=== PATIENT | female | born 1935 | race Caucasian/White ===

== ENCOUNTER → 2016-08-23 | Outpatient (CLI) | payer MEDICARE, BC ==
[~2016-08-23] MED LIST: ACIDOPHILUS PRO1 CAP PO; APRESOLINE 25MG25 MG PO; ASPIRIN E.C. 8181 MG PO; BENICAR HCT 251 TAB PO; BENICAR40 MG PO; BONIVA1 MG/ML MR; BYSTOLIC5 MG PO; CALCIUM 600600 M2 PO; CALCIUM CARBON650 M2; CALTRATE-600 W600 MG PO; CARDI-OMEGA1000 MG PO; CARDIZEM120 MG PO; CHLORTHALIDONE25 MG PO; CLEOCIN HCL300 MG PO; COD LIVER OIL1 CAP PO; COUMADIN 5MG5 MG/TAB PO; COUMADIN 6MG6 MG/TAB PO; COUMADIN 77.5 MG/TAB PO; COZAAR 25MG25 MG/TAB PO; COZAAR 50MG50 MG/TAB PO; DICYCLOMINE10 MG PO; DOXYCYCLINE 10100 MG PO; ENBREL25 MG PO; ENBREL25 MG SC; FOLIC ACID 11 MG/TA1 PO; FOLIC ACID1 MG PO; FORTEO250 MCG/ML SC; FOSAMAX 70MG TA70 MG PO; HCTZ 25MG25 MG PO; HCTZ12.5TAB PO; HYGROTON25 MG PO; LEVOXYL0.1 MG PO; LOPRESSOR 225 MG/TAB PO; LOTRISONE CREAM15 GM TP; LUTEIN; LUTEIN PO; LUTEIN6 MG; METHOTREXA2.5 MG/TAB PO; MULTAQ400 MG PO; MULTI VITAMINS1 TAB PO; MULTIPLE VITAMI1 TA3 PO; MVI; NASONEX SPRAY17 GM NS; NEURONTIN300 MG/CAP PO; NEXIUM 40MG40 MG PO; NEXIUM40 MG PO; NORCO 325 MG-51 TAB PO; NORVASC 5MG5 MG/TAB PO; ORENCIA CL125 MG/1 M SQ; ORENCIA125 MG/ML SC; PEPCID AC 10MG10 MG; PREMARIN VAG42.5 GM VG; PROLIA60 MG/ML SQ; RHINOCORT0.032 MG/2 NS; SALSALATE; SYMBICORT1 AE2 IH; SYNTHROID0.112 MG/T PO; SYNTHROID0.125 MG/T PO; TAMBOCOR50 MG PO; TIROSINT100 MCG PO; TREXALL5 MG PO; TYLENOL 325MG325 MG PO; TYLENOL 500MG500 MG PO; TYLENOL PM EXTR1 TA1 PO; ULTRAM 50MG TAB50 MG PO; VITAMIN D; VITAMIN D 400400 IU PO; VITAMIN D1000 IU PO; VIVELLE-DO0.025 MG/2 TD; ZANTAC 7575 MG PO; ZYRTEC 10MG10 MG PO; [UNRECOGNIZED DRUG - OTHER] TP; cod liver oil; estrogen; l-lysine; levoxyl PO; vit e
== END ==
LOC: MC.RAD 09:40
DX: Z12.31 Encounter for screening mammogram for malignant neoplasm of breast (principal)

== ENCOUNTER 2017-01-23 09:24 | Emergency (ER) | payer MEDICARE, BC ==
[~2017-01-23] VITALS: Ht 165.1 cm; Wt 74.1 kg
[~2017-01-23 09:24] MED LIST changes: -CALCIUM CARBON650 M2; -CARDIZEM120 MG PO; -COZAAR 25MG25 MG/TAB PO; -HCTZ12.5TAB PO; -LUTEIN6 MG; -ORENCIA CL125 MG/1 M SQ; -PROLIA60 MG/ML SQ; -SYNTHROID0.125 MG/T PO; -ZANTAC 7575 MG PO
[2017-01-23 09:27] VITALS: BP 142/71; PULSE 64; TEMP 97.8
[2017-01-23] MEDS ORDERED: VITAMIN D1000 IU PO (09:57)
[2017-01-23] MEDS ORDERED: FOLIC ACID 11 MG/TA1 PO (09:58)
[2017-01-23] MEDS ORDERED: LUTEIN6 MG (09:58)
[2017-01-23] MEDS ORDERED: ORENCIA CL125 MG/1 M SQ (09:58)
[2017-01-23] MEDS ORDERED: SYNTHROID0.125 MG/T PO (09:58)
[2017-01-23] MEDS ORDERED: TYLENOL 500MG500 MG PO (09:59)
[2017-01-23] MEDS ORDERED: HCTZ12.5TAB PO (09:59)
[2017-01-23] MEDS ORDERED: COD LIVER OIL1 CAP PO (09:59)
[2017-01-23] MEDS ORDERED: CARDIZEM120 MG PO (09:59)
[2017-01-23] MEDS ORDERED: COZAAR 25MG25 MG/TAB PO (10:00)
[2017-01-23] MEDS ORDERED: PROLIA60 MG/ML SQ (10:00)
[2017-01-23] MEDS ORDERED: COUMADIN 5MG5 MG/TAB PO (10:01)
[2017-01-23] MEDS ORDERED: CALCIUM CARBON650 M2 (10:02)
[2017-01-23] MEDS ORDERED: ZANTAC 7575 MG PO (10:02)
[2017-01-23] MEDS ORDERED: NEURONTIN300 MG/CAP PO (10:02)
== END 2017-01-23 10:38 | disposition home or self-care (01) ==
LOC: COL.ER 09:24
DX: M79.672 Pain in left foot (principal); I10 Essential (primary) hypertension; Z86.718 Personal history of other venous thrombosis and embolism; Z86.711 Personal history of pulmonary embolism; Z79.01 Long term (current) use of anticoagulants; M06.9 Rheumatoid arthritis, unspecified

== ENCOUNTER → 2017-06-20 | Outpatient (CLI) | payer MEDICARE, BC ==
[~2017-06-20] MED LIST changes: +CALCIUM CARBON650 M2; +CARDIZEM120 MG PO; +COZAAR 25MG25 MG/TAB PO; +HCTZ12.5TAB PO; +LUTEIN6 MG; +ORENCIA CL125 MG/1 M SQ; +PROLIA60 MG/ML SQ; +SYNTHROID0.125 MG/T PO; +ZANTAC 7575 MG PO
== END ==
LOC: COL.PUL 09:56
DX: J84.9 Interstitial pulmonary disease, unspecified (principal)

== ENCOUNTER → 2017-08-26 | Outpatient (CLI) | payer MEDICARE, BC | LOC: MC.RAD 10:43 | DX: Z12.31 Encounter for screening mammogram for malignant neoplasm of breast (principal) ==

== ENCOUNTER → 2018-03-22 | Outpatient (CLI) | payer MEDICARE, BC | LOC: COL.RAD 11:11 | DX: M51.16 Intervertebral disc disorders with radiculopathy, lumbar region (principal); M48.061 Spinal stenosis, lumbar region without neurogenic claudication; M99.73 Connective tissue and disc stenosis of intervertebral foramina of lumbar region ==

== ENCOUNTER → 2018-03-29 | Outpatient (CLI) | payer MEDICARE, BC ==
[~2018-03-29] VITALS: Ht 162.6 cm; Wt 68.8 kg
[~2018-03-29] MED LIST changes: +B-12 100 MCG PO; -CALCIUM CARBON650 M2; +CALCIUM CARBON650 M2 PO; +COLACE 100100 MG/CAP PO; -LUTEIN6 MG; +LUTEIN6 MG PO; +MASON NATURAL2000 IU PO; +NEXIUM 20MG20 MG PO; +NEXIUM 24HR20 M1 PO; +SYNTHROID0.137 MG PO
[2018-03-29 13:43] VITALS: BP 168/79; PULSE 67
[2018-03-29 14:07] LABS: INR 1.1 (0.8-3.0)
[2018-03-29 15:15] VITALS: BP 169/82; PULSE 62
== END ==
LOC: COL.RAD 13:00
PROVIDERS: Radiology Diagnostic Radiology
DX: M54.16 Radiculopathy, lumbar region (principal)
CPT/HCPCS: J3301

== ENCOUNTER → 2018-04-20 | Outpatient (CLI) | payer MEDICARE, BC ==
[~2018-04-20] VITALS: Ht 162.6 cm; Wt 68.0 kg
[~2018-04-20] MED LIST changes: +COUMADIN4 MG PO; +HAIRSKINNAILS PO
[2018-04-20 09:54] VITALS: BP 161/84; PULSE 62
[2018-04-20 09:58] LABS: INR 1.1 (0.8-3.0); PROTHROMBIN TIME 12.6 SECONDS (9.7-12.8)
[2018-04-20 11:10] VITALS: BP 159/84; PULSE 65
== END ==
LOC: COL.RAD 09:30
PROVIDERS: Family Medicine
DX: M54.16 Radiculopathy, lumbar region (principal)
CPT/HCPCS: J3301

== ENCOUNTER → 2018-09-01 | Outpatient (CLI) | payer MEDICARE, BC | LOC: MC.RAD 13:02 | DX: Z12.31 Encounter for screening mammogram for malignant neoplasm of breast (principal); N63.24 Unspecified lump in the left breast, lower inner quadrant ==

== ENCOUNTER → 2018-10-09 | Outpatient (CLI) | payer MEDICARE, BC ==
[~2018-10-09] VITALS: Ht 162.6 cm; Wt 67.4 kg
[~2018-10-09] MED LIST changes: +APRESOLINE 10MG10 MG PO; +B-121000 MCG PO; +FERROUS GL325 MG/TAB PO; +PREDNISONE 2.52.5 MG PO; +SYNTHROID 0.10.15 MG PO; +VITAMIN C500 MG PO
[2018-10-09 12:10] VITALS: BP 169/88; PULSE 86
[2018-10-09 12:34] LABS: PROTHROMBIN TIME 11.9 SECONDS (9.7-12.8)
[2018-10-09 13:45] VITALS: BP 170/77; PULSE 66
--- NOTE | 2018-10-09 14:15 | NUR ---
PT TAKEN DOWNSTAIRS TO POV IN WHEELCHAIR. PT ABLE TO STAAND UP AND AMBULATE TO POV USING CANE
== END ==
LOC: COL.RAD 10-04 11:45
PROVIDERS: Family Medicine
DX: M48.062 Spinal stenosis, lumbar region with neurogenic claudication (principal); M54.16 Radiculopathy, lumbar region
CPT/HCPCS: J3301

== ENCOUNTER → 2018-10-23 | Outpatient (CLI) | payer MEDICARE, BC ==
[~2018-10-23] VITALS: Ht 162.6 cm; Wt 68.5 kg
[2018-10-23 09:59] VITALS: BP 158/77; PULSE 66
[2018-10-23 11:35] VITALS: BP 162/76; PULSE 74
--- NOTE | 2018-10-23 12:15 | NUR ---
Pt able to stand on legs. Unable to walk at this time. Pt leans into daughter and nurse and daughter assist her back to chair. Pt states right leg numb. She is able to move them but cant walk on them.
[2018-10-23 12:30] VITALS: BP 155/78; PULSE 69
--- NOTE | 2018-10-23 13:03 | NUR ---
Pt able to ambulate across floor with assistance. States legs feel better but still not quite right. Pt to be monitored for an additional 15 minutes.
--- NOTE | 2018-10-23 13:18 | NUR ---
Pt up to ambulate without assistance. Pt reports right leg and foot feels better. Pt out to car per wheelchair. Denies pain at this time. Daughter at bedside. Copy of discharge instructions gone over with pt and verbalized understanding of instructions. Instructions gone over prior to procedure.
== END ==
LOC: COL.RAD 09:27
PROVIDERS: Family Medicine
DX: M48.062 Spinal stenosis, lumbar region with neurogenic claudication (principal)
CPT/HCPCS: J3301

== ENCOUNTER 2019-03-02 10:45 | Outpatient (RCR) | payer MEDICARE, BC | END 2019-03-02 13:12 | disposition home or self-care (01) | LOC: WSC 10:45 | DX: M70.72 Other bursitis of hip, left hip (principal) ==

== ENCOUNTER → 2019-09-07 | Outpatient (CLI) | payer MEDICARE, BC | LOC: MC.RAD 10:14 | DX: Z12.31 Encounter for screening mammogram for malignant neoplasm of breast (principal) ==

== ENCOUNTER → 2020-09-29 | Outpatient (CLI) | payer MEDICARE, BC ==
[~2020-09-29] MED LIST changes: +CALCITRIOL PO; +CARDIZEM CD 12120 MG PO; +COUMADIN 1MG1 MG/TAB PO; +CYMBALTA 20MG20 MG PO; +HUMIRA(CF)40 MG/0.4 SQ; +HYGROTON 2525 MG/TAB PO; +MAG-OX 400400 MG/TAB PO; +MIRALAX PA17 GM/Dose PO; +PERCOCET 325 MG1 TA2 PO; +PREDNISONE 5MG5 MG PO; +PRILOSEC 20MG20 MG PO; +ROCALTROL0.5 MCG PO; +VOLTAREN GEL 1%1 TU TP
== END ==
LOC: MC.RAD 09-08 10:00
DX: Z12.31 Encounter for screening mammogram for malignant neoplasm of breast (principal)

== ENCOUNTER 2020-11-21 11:39 | Emergency (ER) | payer MEDICARE, BC ==
[~2020-11-21] VITALS: Ht 162.6 cm; Wt 63.6 kg
[~2020-11-21 11:39] MED LIST changes: -CALCITRIOL PO; -CARDIZEM CD 12120 MG PO; -COUMADIN 1MG1 MG/TAB PO; -CYMBALTA 20MG20 MG PO; -HUMIRA(CF)40 MG/0.4 SQ; -HYGROTON 2525 MG/TAB PO; -MAG-OX 400400 MG/TAB PO; -MIRALAX PA17 GM/Dose PO; -PERCOCET 325 MG1 TA2 PO; -PREDNISONE 5MG5 MG PO; -PRILOSEC 20MG20 MG PO; -ROCALTROL0.5 MCG PO; -VOLTAREN GEL 1%1 TU TP
[2020-11-21] MEDS ORDERED: PERCOCET 325 MG1 TA2 PO (14:15)
[2020-11-21 17:32] VITALS: BP 172/97; PULSE 93; TEMP 98.1
--- NOTE | 2020-11-22 16:42 | NUR ---
Straightener Hand received consult for patient who discharged from the ED yesterday. Per ED consult, patient has a pelvis fracture. SW contacted patient's daughter, Silvana (ph#[phone]) who advised she will be staying with patient and patient's , Capo (ph#[phone]) through the weekend to provide support as she does not feel she can leave patient alone at this time. SW reviewed resources and facilities including home health, private duty services, SNF, and IPR. RAFAL advised Silvana that SNF would be private pay as Silvana confirmed patient has not been hospitalized in the last 30 days. Silvana does not believe they can afford this. Silvana advised that she may be interested in IPR. Silvana would like to take patient to her appointment with Ortho on Tuesday @ 0900 then follow up with RAFAL. SW provided her contact information and will follow up Tuesday.
== END 2020-11-21 16:40 | disposition home or self-care (01) ==
LOC: COL.ER 11:39
DX: S32.89XA Fracture of other parts of pelvis, initial encounter for closed fracture (principal); G89.29 Other chronic pain; M54.9 Dorsalgia, unspecified; Z90.710 Acquired absence of both cervix and uterus; Z88.0 Allergy status to penicillin; Z88.2 Allergy status to sulfonamides; Z88.8 Allergy status to other drugs, medicaments and biological substances; Z79.01 Long term (current) use of anticoagulants; Z88.1 Allergy status to other antibiotic agents; W19.XXXA Unspecified fall, initial encounter; Y92.838 Other recreation area as the place of occurrence of the external cause

== ENCOUNTER 2020-11-24 10:10 | Observation (INO) | payer MEDICARE, BC ==
[~2020-11-24] VITALS: Ht 162.6 cm; Wt 63.7 kg
[~2020-11-24 10:10] MED LIST changes: +PERCOCET 325 MG1 TA2 PO
[2020-11-24] MEDS ORDERED: PRILOSEC 20MG20 MG PO (10:50)
[2020-11-24] MEDS ORDERED: ROCALTROL0.5 MCG PO (10:55)
[2020-11-24] MEDS ORDERED: HYGROTON 2525 MG/TAB PO (10:56)
--- NOTE | 2020-11-24 10:56 | NUR ---
Pt admitted to surgical unit rm 326, direct from doctor's office, accompanied by spouse and daughter. Pt awake and alert, oriented x 4, denies pain to pelvis while lying still, reports pain greatly increases with movement "in and out of bed." Physical assessment unremarkable. POC and room orientation reviewed with pt and pt's family. Call light in reach. Bed alarm on.
[2020-11-24] MEDS ORDERED: APRESOLINE 25MG25 MG PO (10:58)
[2020-11-24] MEDS ORDERED: HUMIRA(CF)40 MG/0.4 SQ (11:00)
[2020-11-24] MEDS ORDERED: PREDNISONE 5MG5 MG PO (11:05)
[2020-11-24 11:10] VITALS: BP 136/53; PULSE 63; TEMP 98.3
--- NOTE | 2020-11-24 11:17 | NUR ---
Brim And Crown Presser had consult for this patient from the ED over the weekend. See note for further detail. Hospitalist notified SW that patient to be direct admitted. SW notified SIDDHARTH Mcguire Director that patient to be admitted.
[2020-11-24 11:24] VITALS: BP 146/52; PULSE 60; TEMP 99.2
--- NOTE | 2020-11-24 12:18 | NUR ---
First visit from the ventilating expert. No needs right now.
[2020-11-24 13:00] LABS: HEMOGLOBIN 10.8 g/dl (12.5-16.0); MEAN CELL VOLUME 95 fl (80.0-100.0); MEAN CORPUSCULAR HEMOGLOBIN 32 pg (27.0-31.0); MEAN CORPUSCULAR HGB CONC 34 g/dl (33.0-37.0); MEAN PLATELET VOLUME 8.4 fl (7.4-10.4); PLATELET COUNT 238 K/mm3 (130-400); RED BLOOD COUNT 3.37 M/mm3 (4.10-5.30); REDCELL DISTRIBUTION WIDTH-CV 12.4 % (11.5-14.5)
[2020-11-24 13:05] LABS: HEMATOCRIT 31.9 % (37.0-47.0)
[2020-11-24 13:06] LABS: INR 4.9 (0.8-3.0)
[2020-11-24 13:10] LABS: PROTHROMBIN TIME 54.9 SECONDS (9.7-12.8)
[2020-11-24 13:15] LABS: BILIRUBIN,TOTAL 0.5 mg/dL (0.0-1.0); CREATININE, serum 1.3 (0.52-1.25); MAGNESIUM 1.5 mg/dL (1.6-2.3); POTASSIUM 4.4 mmol/L (3.4-5.0)
[2020-11-24 13:44] LABS: BAND 17 % (0-10); LYMPHOCYTE 4 % (20.0-51.0); NEUTROPHILS 75 % (42.0-75.2); PLATELET ESTIMATE NORMAL (NORMAL)
[2020-11-24 15:38] VITALS: BP 158/62; PULSE 60; TEMP 98.2
--- NOTE | 2020-11-24 18:23 | NUR ---
Pt assisted up to BSC by OSMANI, reports pain to left hip and right knee increases with movement but decreases quickly when at rest. Pt requests to wait to take pain medication at bedtime. Pt's family at bedside. Call light in reach.
[2020-11-24 18:33] LABS: COLLECTION METHOD CLEAN CATCH
[2020-11-24 18:41] LABS: PH 7 (5-8); SQUAMOUS EPITHELIAL 0-2 /hpf; URINE APPEARANCE Clear; URINE BACTERIA Rare /hpf; URINE BILIRUBIN Negative (NEGATIVE); URINE BLOOD Negative (NEGATIVE); URINE COLOR Yellow; URINE GLUCOSE Negative (NEGATIVE); URINE KETONE Negative (NEGATIVE); URINE LEUKOCYTE ESTERASE Negative (NEGATIVE); URINE NITRATE Negative (NEGATIVE); URINE PROTEIN(semi-quant) Negative (NEGATIVE); URINE UROBILINOGEN Negative (NEGATIVE)
--- NOTE | 2020-11-24 19:17 | NUR ---
Report with ANDREI Segovia. Pt sitting up in bed, denies needs at this time. Call light in reach. Bed alarm on.
[2020-11-24 19:59] VITALS: BP 121/58; PULSE 71; TEMP 98.3
--- NOTE | 2020-11-24 21:00 | NUR ---
PT IN BED. IS ALERT AND ORIENTED X4. HAS RT FOREARM SL. DENIES NEEDS AT THIS TIME.
--- NOTE | 2020-11-24 22:37 | NUR ---
MEDICATED WITH HS MEDS INCLUDING TRAMADOL 25MG PO AT THIS TIME FOR PAIN TO LEFT LEG AND RT KNEE, 12/18. ASSISTED TO BSC VOIDS AND BACK TO BED.
[2020-11-25 01:01] VITALS: BP 128/58; PULSE 72; TEMP 98.6
--- NOTE | 2020-11-25 02:00 | NUR ---
MEDICATED WITH TYLENOL 650MG PO FOR LEFT HIP PAIN.
[2020-11-25 03:08] VITALS: BP 148/89; PULSE 74; TEMP 98
--- NOTE | 2020-11-25 05:30 | NUR ---
MEDICATED WITH TRAMADOL 25MG PO FOR RT KNEE AND LEFT LEG PAIN. ASSISTED TO BSC AND BACK TO BED. TAKES SCHEDULED AM MEDS AT THIS TIME.
[2020-11-25 07:19] VITALS: BP 138/67; PULSE 83; TEMP 97.5
[2020-11-25 07:31] LABS: INR 3.9 (0.8-3.0); PROTHROMBIN TIME 43.4 SECONDS (9.7-12.8)
[2020-11-25 07:34] LABS: BASO # 0.1 (0.0-0.2); BASO % 0.6 % (0.0-2.0); CALCIUM 9.7 mg/dL (8.4-10.2); CREATININE, serum 1.17 (0.52-1.25); EOS # 0.1 (0.0-0.7); EOS % 1.3 % (0-4.0); GRAN # 6.3 (1.4-6.5); GRAN % 65.4 % (42.2-75.2); HEMOGLOBIN 10.4 g/dl (12.5-16.0); LYMPH # 2.2 (1.2-3.4); LYMPH % 22.7 % (20.0-51.0); MEAN CELL VOLUME 96 fl (80.0-100.0); MEAN CORPUSCULAR HEMOGLOBIN 32 pg (27.0-31.0); MEAN CORPUSCULAR HGB CONC 34 g/dl (33.0-37.0); MEAN PLATELET VOLUME 8.6 fl (7.4-10.4); MONO # 0.8 (0.1-0.6); MONO % 8.6 % (1.7-9.3); PLATELET COUNT 259 K/mm3 (130-400); POTASSIUM 3.6 mmol/L (3.4-5.0); RED BLOOD COUNT 3.22 M/mm3 (4.10-5.30); REDCELL DISTRIBUTION WIDTH-CV 12.6 % (11.5-14.5)
--- NOTE | 2020-11-25 09:32 | NUR ---
SW attended clinical rounds. The patient's daughter, Silvana (ph#[phone]), was at bedside. The patient has a pelvic fracture and is observation status. The hospitalist discussed going to IPR for post-acute rehab and how it would be covered by insurance. He states that he would like to discharge the patient to IPR today. The patient and her daughter were agreeable to the plan. IPR Director was consulted. RAFAL then followed up with the patient and Silvana to complete intake. The patient lives in [place] with her , Capo (ph#[phone]). Silvana lives by [place]. Silvana reports that the patient was independent with ADLs before her fall. She has a cane and rollator. The patient's PCP is Dr. Santy Robledo and she receives her medications from [facility]. The patient does not have a DPOA-HC in EMR, but she states that she does have one completed and that it designates Silvana. RAFAL requested that Silvana bring a copy up to the hospital. Silvana reports that she can. The patient and Silvana are hopeful to go to [facility]. Silvana reports that the [facility] Their goal is to get the patient back to being self sufficient. Awaiting IPR screen.
--- NOTE | 2020-11-25 10:39 | NUR ---
Patient alert and oriented, answers questions appropriately. See assessment. BLE with pulses palpable. FWB with gait belt, FWW, assist x1. ROM exercises reviewed with patient. No c/o at this time.
[2020-11-25 11:12] VITALS: BP 118/57; PULSE 66; TEMP 97.6
[2020-11-25] MEDS ORDERED: MAG-OX 400400 MG/TAB PO (12:34)
[2020-11-25] MEDS ORDERED: TYLENOL 325MG325 MG PO (12:34)
[2020-11-25] MEDS ORDERED: VOLTAREN GEL 1%1 TU TP (12:34)
--- NOTE | 2020-11-25 13:18 | NUR ---
[facility] has accepted the patient and the patient will discharge today, 11/22, to [facility]. No additional needs at this time.
--- NOTE | 2020-11-25 14:30 | NUR ---
Patient transfered to [facility] via wheelchair. Paperwork sent, Magui FORBES given report. Transfered at 1430.
== END 2020-11-25 14:30 ==
LOC: SURG 10:10
PROVIDERS: ADMIT Internal Medicine
DX: S32.9XXA Fracture of unspecified parts of lumbosacral spine and pelvis, initial encounter for closed fracture (principal); I48.0 Paroxysmal atrial fibrillation; I10 Essential (primary) hypertension; M06.9 Rheumatoid arthritis, unspecified; M48.00 Spinal stenosis, site unspecified; E83.42 Hypomagnesemia; Z86.718 Personal history of other venous thrombosis and embolism; Z88.0 Allergy status to penicillin; Z88.2 Allergy status to sulfonamides; Z91.048 Other nonmedicinal substance allergy status; Z88.1 Allergy status to other antibiotic agents; Z88.8 Allergy status to other drugs, medicaments and biological substances; Z79.899 Other long term (current) drug therapy; Z79.01 Long term (current) use of anticoagulants; Z79.890 Hormone replacement therapy; Z79.891 Long term (current) use of opiate analgesic; Z95.0 Presence of cardiac pacemaker; Z90.710 Acquired absence of both cervix and uterus
CPT/HCPCS: 99222-AI; G0378; J7512

== ENCOUNTER 2020-11-25 13:39 | Inpatient (IN) | payer MEDICARE, BC ==
[~2020-11-25] VITALS: Ht 162.6 cm; Wt 64.1 kg
[~2020-11-25 13:39] MED LIST changes: +HUMIRA(CF)40 MG/0.4 SQ; +HYGROTON 2525 MG/TAB PO; +MAG-OX 400400 MG/TAB PO; +PREDNISONE 5MG5 MG PO; +PRILOSEC 20MG20 MG PO; +ROCALTROL0.5 MCG PO; +VOLTAREN GEL 1%1 TU TP
--- NOTE | 2020-11-25 17:25 | NUR ---
Warfarin Initial Dosing Pharmacy Note Ordering Provider: Jakob Lynch MD Indication: Atrial fibrillation/ h/o DVT LABS: INR 3.9 Recommendation: Hold warfarin until INR drops to therapeutic range of 2-3. Pharmacy will continue to closely monitor daily INR levels and restart warfarin when appropriate. Home Regimen: Warfarin 5 mg po qHS
[2020-11-25 17:26] VITALS: BP 141/75; PULSE 89; TEMP 97.3
[2020-11-25 17:28] VITALS: BP 141/75; PULSE 89; TEMP 97.3
--- NOTE | 2020-11-25 17:35 | NUR ---
Patient arrived from surgical via wheelchair. Was assessed by PT and OT per orders. Patient is alert and oriented, answers questions appropriately. Patient is able to transfer and ambulate with gaitbelt, walker and light 1x assist. Patient is currently eating dinner, at bedside. Denies needs, call light within reach, chair alarm on.
--- NOTE | 2020-11-25 21:00 | NUR ---
Assessment complete. Pt is AXO X3, states she has pain in her L hip rated at a 5/10. Pt is sitting up in the bed watching TV at this time and she denies further needs. Call light within reach.
[2020-11-26 04:10] VITALS: BP 139/69; PULSE 62; TEMP 97.9
--- NOTE | 2020-11-26 08:02 | NUR ---
Patient resting in recliner, call light in reach and finished her breakfast. Patient reports some right knee pain and was given prn Tylenol.
[2020-11-26 09:02] LABS: INR 2.2 (0.8-3.0); PROTHROMBIN TIME 24.6 SECONDS (9.7-12.8)
[2020-11-26 15:32] VITALS: BP 181/72; PULSE 72; TEMP 97.3
--- NOTE | 2020-11-26 16:27 | NUR ---
This SW met with the patient and her daughter, Silvana, yesterday and completed an intake. The patient lives in [place] with her , Capo (ph#[phone]). The patient was independent with ADLs before IPR and she has a cane and rollator. The patient's PCP is Dr. Santy Robledo and she receives her medications from [facility]. The patient does not have a DPOA-HC in EMR, but she informed RAFAL that she does have one completed and that it designates Silvana. RAFAL requested that Silvana bring a copy up to the hospital. Silvana reported that she could. SW met with the patient and her today and reviewed the IPR Team Conference Note with them. The patient's daughter, Silvana, was on speaker phone. The patient has made great progress with therapy so far and the team has set a tentative d/c date for next Tuesday, 12/06, with home health PT/OT. The patient and her family were agreeable to the plan. Silvana just wants to make sure that the patient is able to get up on her own and be independent. She states that the [facility] and she or her brother can picking machine operator the patient then. She states that she will be staying with the patient and her for a few days after she discharges. Silvana reports that they would also prefer [facility] for the home health agency. SW to fax a referral to [facility] and will continue to follow.
[2020-11-26 16:57] VITALS: BP 180/64
--- NOTE | 2020-11-26 18:31 | NUR ---
Patient attended all therapies this shift. Reports that she has back pain that is chronic and has a stimulator to help with pain management. She has poor sensation in her right hand and is a min assist with doning pants. She is a DNR with intervention. She has a DNR, but not sure how she can get a copy of it. She uses a 4ww with ambulation. She reports having a history of constipation and has been given prn colace and miralax with no effect. This evening she was given a suppository. Will continue to monitor.
--- NOTE | 2020-11-26 18:34 | NUR ---
Patient's Blood pressure was high this afternoon. This nurse reviewed her meds and patient realized that she usually takes her Chlorthalidone in the afternoon not in the morning, which could by why her blood pressure has been elevated this afternoon. See new orders for Chlorthalidone in the afternoon.
--- NOTE | 2020-11-26 18:40 | NUR ---
Patient's personal items that she had upon admission were the following: Hearing aids (2); 3 gold bands fused together; glasses; Ipad; mold engraver; stimulator and mold engraver.
--- NOTE | 2020-11-26 21:00 | NUR ---
PT RESTING IN BED. VERY PLEASANT AND COOPERATIVE. POOR RESULT FRO SUPPOSITORY EARLIER LAST SHIFT. GAVE SENOKOT AND COLACE TONIGHT. DENIES NEED FOR PAIN MEDICATION. CALL LIGHT IN REACH. BED ALARM SET.
[2020-11-27 05:15] VITALS: BP 156/74; PULSE 62; TEMP 98.6
[2020-11-27 06:50] LABS: INR 1.7 (0.8-3.0); PROTHROMBIN TIME 18.8 SECONDS (9.7-12.8)
--- NOTE | 2020-11-27 07:48 | NUR ---
Patient dressing herself this morning prior to PT. Reports 2/10 pain to left knee and given prn Tylenol. Will continue to monitor.
--- NOTE | 2020-11-27 09:18 | NUR ---
RAFAL contacted the patient's daughter, Zeyad, to schedule a patient/family meeting. The patient/family meeting was scheduled for next Tuesday, 12/01, at 1300. RAFAL notified IPR Director. RAFAL also contacted and faxed a referral to Izzy at [facility]. Izzy reports that they are able to accept the patient for services.
--- NOTE | 2020-11-27 13:43 | NUR ---
Patient resting in recliner following her afternoon OT session.
[2020-11-27 16:30] VITALS: BP 155/65; PULSE 67; TEMP 97.7
--- NOTE | 2020-11-27 19:12 | NUR ---
Patient reported that she was constipated see new orders for bowel regimen. This nurse asked patient if she could give her a suppository this afternoon, but she felt that she could go on her own. Patient is currently resting in recliner, call light in reach and bed alarm set. Reported off to night nurse.
--- NOTE | 2020-11-27 23:06 | NUR ---
PT RESTING IN BED. NO NEEDS AT THIS TIME.
[2020-11-28 04:44] VITALS: BP 130/49; PULSE 62; TEMP 98
[2020-11-28 06:26] LABS: BASO # 0.1 (0.0-0.2); BASO % 0.6 % (0.0-2.0); EOS # 0.1 (0.0-0.7); EOS % 1.3 % (0-4.0); GRAN # 6.6 (1.4-6.5); GRAN % 66.9 % (42.2-75.2); HEMOGLOBIN 10.1 g/dl (12.5-16.0); LYMPH # 2.2 (1.2-3.4); LYMPH % 22.1 % (20.0-51.0); MEAN CELL VOLUME 95 fl (80.0-100.0); MEAN CORPUSCULAR HEMOGLOBIN 33 pg (27.0-31.0); MEAN CORPUSCULAR HGB CONC 35 g/dl (33.0-37.0); MEAN PLATELET VOLUME 8.3 fl (7.4-10.4); MONO # 0.8 (0.1-0.6); MONO % 7.8 % (1.7-9.3); PLATELET COUNT 256 K/mm3 (130-400); RED BLOOD COUNT 3.09 M/mm3 (4.10-5.30); REDCELL DISTRIBUTION WIDTH-CV 12.6 % (11.5-14.5)
[2020-11-28 06:31] LABS: HEMATOCRIT 29.3 % (37.0-47.0)
[2020-11-28 06:41] LABS: CALCIUM 10.3 mg/dL (8.4-10.2); CREATININE, serum 1.6 (0.52-1.25); MAGNESIUM 1.7 mg/dL (1.6-2.3); POTASSIUM 4.3 mmol/L (3.4-5.0)
[2020-11-28 06:43] LABS: INR 1.5 (0.8-3.0); PROTHROMBIN TIME 16.5 SECONDS (9.7-12.8)
--- NOTE | 2020-11-28 10:22 | NUR ---
PT UP TO WC FOR THEARPY. LEFT ROOM TO GO TO EXCERCISE ROOM. PT IS A/O X3
--- NOTE | 2020-11-28 14:35 | NUR ---
Admission QIM scores were reviewed by the team. Code of 4 chosen for oral hygiene was determined by team discussion to be the most usual performance before interventions for this patient during the assessment period. Code of 4 chosen for toilet hygiene was determined by team discussion to be the most usual performance for this patient during the assessment period. Code of 3 chosen for lower body dressing was determined by team discussion to be the most usual performance for this patient during the assessment period. Code of 88 chosen for rolling left to right was determined by team discussion to be the most usual performance for this patient during the assessment period. Code of 3 chosen for sit to lying was determined by team discussion to be the most usual performance for this patient during the assessment period. Code of 3 for sit to stand was determined by team discussion to be the most usual performance for this patient during the assessment period. Code of 3 for chair/bed to chair transfers was determined by team discussion to be the most usual performance for this patient during the assessment period. Code of 88 chosen for walk 10 feet on uneven surface was determined by team discussion to be the most usual performance for this patient during the assessment period. Code of 88 chosen for walk 50 feet w/ 2 turns was determined by team discussion to be the most usual performance for this patient during the assessment period.--PD Kelly
[2020-11-28 17:18] VITALS: BP 117/56; PULSE 64; TEMP 97.7
--- NOTE | 2020-11-28 19:10 | NUR ---
RECEIVED CHANGE OF SHIFT REPORT FROM DAY SHIFT NURSE. PATIENT WITH NO REPORTED NEEDS AT TIME OF REPORT.
[2020-11-28 22:40] VITALS: BP 171/81
[2020-11-29 05:28] VITALS: BP 110/49; PULSE 68; TEMP 98.5
[2020-11-29 06:26] LABS: INR 1.4 (0.8-3.0); PROTHROMBIN TIME 15.1 SECONDS (9.7-12.8)
--- NOTE | 2020-11-29 07:19 | NUR ---
CHANGE OF SHIFT REPORT GIVEN TO DAY SHIFT NURSE, HERVE FORBES.
[2020-11-29 17:47] VITALS: BP 123/48; PULSE 62; TEMP 97.8
--- NOTE | 2020-11-29 18:40 | NUR ---
RECEIVED CHANGE OF SHIFT REPORT FROM DAY SHIFT NURSE.
--- NOTE | 2020-11-29 19:14 | NUR ---
PATIENT SITTING UP IN BED ASLEEP, DOESNOT WAKE WHEN THIS NURSE ENTERED ROOM TO UPDATE COMMUNICATION BOARD. BREATHING OBSERVED EVEN AND NONLABORED.
--- NOTE | 2020-11-29 20:00 | NUR ---
DENIES CHEST PAIN/SOA AT THIS TIME. BED ALARM ON WHEN IN BED. UP AMB WITH SLOW BUT STEADY GAIT.
--- NOTE | 2020-11-29 20:30 | NUR ---
REFUSED SCD WHEN GETTING READY FOR SLEEP AT THIS TIME
[2020-11-29 21:18] VITALS: BP 131/53
[2020-11-30 05:10] VITALS: BP 152/54; PULSE 67; TEMP 98
[2020-11-30 06:32] LABS: INR 1.4 (0.8-3.0); PROTHROMBIN TIME 15.7 SECONDS (9.7-12.8)
--- NOTE | 2020-11-30 06:50 | NUR ---
CHANGE OF SHIFT REPORT GIVEN TO DAY SHIFT NURSE, MARGRET FORBES.
--- NOTE | 2020-11-30 07:00 | NUR ---
shift report was received from ANDREI Geronimo, patient is up in WC and eating breakfast
--- NOTE | 2020-11-30 07:30 | NUR ---
had breakfast and tolerated well, assisted her with getting dressed, she was independent except assisted to stand and put on her pants, full assessment completed, see interventions for further info, will use remain in WC and go to sink to brush her teeth
--- NOTE | 2020-11-30 09:45 | NUR ---
resting in chair, was assisted back to chair from WC by another nurse, patient denies needs
--- NOTE | 2020-11-30 12:00 | NUR ---
sitting up in chair eating lunch, c/o pain 10/18 to hip and back, medicated with tylenol 650mg
--- NOTE | 2020-11-30 12:16 | NUR ---
report given to ANDREI Kilgore
[2020-11-30 16:42] VITALS: BP 146/75; PULSE 79; TEMP 97.9
--- NOTE | 2020-11-30 17:41 | NUR ---
Patient resting in bedside recliner eating dinner at this time. Patient is alert and oriented, answers questions appropriately. Patient has had no complaint of pain this afternoon, continues to be SBA with walker. Denies needs at this time, call light within reach.
--- NOTE | 2020-11-30 19:03 | NUR ---
RECEIVED CHANGE OF SHIFT REPORT FROM DAY SHIFT NURSE.
--- NOTE | 2020-11-30 20:00 | NUR ---
PATIENT STATED SHE HAS HAD X3 SMALL SOFT BM'S TODAY.
--- NOTE | 2020-11-30 20:00 | NUR ---
DENIES CHEST PAIN/SOA, DENIES NUMBNESS/TINGLING TO EXTREMITIES AT THIS TIME. BED ALARM ON WHEN IN BED. REQUESTING TRAMADOL WITH HS MEDS TONIGHT.
[2020-11-30 21:31] VITALS: BP 118/55
--- NOTE | 2020-12-01 02:42 | NUR ---
PATIENT DOES NOT WAKE WHEN DOOR TO ROOM IS OPENED BY STAFF, BREATHING REMAINED NONLABORED AND EVEN. BED ALARM ON.
[2020-12-01 05:26] VITALS: BP 144/70; PULSE 71; TEMP 98.2
--- NOTE | 2020-12-01 05:45 | NUR ---
PATIENT REQUESTING TO GET UP IN W/C TO GET DRESSED IN STREET CLOTHES AFTER BREAKFAST. DENIES ANY OTHER NEEDS AT THIS TIME.
[2020-12-01 06:38] LABS: INR 1.6 (0.8-3.0); PROTHROMBIN TIME 17.8 SECONDS (9.7-12.8)
[2020-12-01 06:45] LABS: CALCIUM 9.9 mg/dL (8.4-10.2); CREATININE, serum 1.67 (0.52-1.25); MAGNESIUM 1.9 mg/dL (1.6-2.3); POTASSIUM 3.7 mmol/L (3.4-5.0)
--- NOTE | 2020-12-01 06:55 | NUR ---
CHANGE OF SHIFT REPORT GIVEN TO DAY SHIFT NURSE, LISA FORBES.
--- NOTE | 2020-12-01 06:58 | NUR ---
Pt awake and being assisted to the restroom with BOARD FINISHER
--- NOTE | 2020-12-01 08:06 | NUR ---
Pt sitting up in the chair this morning. She stated that she is not feeling the greatest due to not getting any sleep last night. She reports that her knees were bothering her too much. PRN pain medication given. Pt has had breakfast and is awaiting therapy at this time. No other needs verbalized
--- NOTE | 2020-12-01 09:40 | NUR ---
Pt resting in bed, states she is hoping to get some rest before OT. Door closed, call light within reach
--- NOTE | 2020-12-01 12:30 | NUR ---
Pt has family in the room with her. She has just finished up lunch. Reports that she does not have any pain at the time. Discussed Dr Lynch increasing the Ultram dose at night to help with her knee pain. No other questions
--- NOTE | 2020-12-01 13:56 | NUR ---
Coupling Machine Operator attended family meeting which included patient's , Capo and daughter, Silvana. SIDDHARTH Mcguire Director opened meeting by explaining it's purpose then PT/OT reviewed patient's progress and recommendations. PT/OT to evaluate tomorrow if patient can be independent in room, per patient's request. SW advised patient and family that discharge date is set for 12/06 and [facility] has accepted referral. SW to continue to follow.
[2020-12-01 16:26] VITALS: BP 137/57; PULSE 65; TEMP 97.9
--- NOTE | 2020-12-01 16:29 | NUR ---
Pt sitting up in her wheelchair. Denies any needs
[2020-12-01 21:35] VITALS: BP 139/52
--- NOTE | 2020-12-02 03:50 | NUR ---
RECEIVED CHANGE OF SHIFT REPORT FROM DAY SHIFT NURSE. PATIENT UP IN W/C DURING REPORT. CHAIR ALARM ON.
[2020-12-02 05:34] VITALS: BP 155/63; PULSE 61; TEMP 98.6
[2020-12-02 06:58] LABS: INR 1.9 (0.8-3.0)
--- NOTE | 2020-12-02 07:19 | NUR ---
CHANGE OF SHIFT REPORT GIVEN TO DAY SHIFT NURSE, LISA FORBES.
--- NOTE | 2020-12-02 10:51 | NUR ---
Pt made a Barbara per PT, alarms not utilized and yellow gown/socks not in place
--- NOTE | 2020-12-02 18:09 | NUR ---
Pt has done well throughout the day. Minimal pain complaints. She has been taking Tylenol during the day for some pain complaints in her knees. Pt son currently visiting at this time
[2020-12-02 18:57] VITALS: BP 118/61; PULSE 76; TEMP 97.4
--- NOTE | 2020-12-03 04:48 | NUR ---
PATIENT RESTED QUIETLY IN BED THROUGHOUT THE NIGHT. PRN PAIN MEDICATION ADMINISTERED X'2 THIS SHIFT. NO NEW ISSUES NOTED OR REPORTED BY PATIENT.
[2020-12-03 05:48] VITALS: BP 166/91; PULSE 66; TEMP 97.2
--- NOTE | 2020-12-03 06:58 | NUR ---
Pt sitting up in her wheelchair, dressed for the day. She is aware that she will be taking a shower with OT today. States that her pain is tolerable as she had some tylenol in the lead refiner. No needs at this time, awaiting breakfast
[2020-12-03 07:12] LABS: CALCIUM 10.4 mg/dL (8.4-10.2); CREATININE, serum 1.53 (0.52-1.25); POTASSIUM 3.7 mmol/L (3.4-5.0)
[2020-12-03 07:18] LABS: PROTHROMBIN TIME 22.4 SECONDS (9.7-12.8)
--- NOTE | 2020-12-03 14:50 | NUR ---
Pt has done well throughout the day, minimal pain complaints. She continues to get around the room independently. Minimal needs
--- NOTE | 2020-12-03 15:56 | NUR ---
Senior Housekeeper met with patient and patient's to review and provide copy of team conference notes. Patient states she is ready to get home. SW contacted Izzy at [facility] to touch base and remind her of discharge date. RAFAL will continue to follow.
[2020-12-03 16:44] VITALS: BP 121/49; PULSE 74; TEMP 97.8
--- NOTE | 2020-12-03 19:00 | NUR ---
RECEIVED CHANGE OF SHIFT REPORT FROM DAY SHIFT NURSE.
--- NOTE | 2020-12-03 20:00 | NUR ---
PATIENT UP IN ROOM WITH NO ASST FROM STAFF. DENIES ANY COMPLAINTS AT TIME OF CHANGE OF SHIFT REPORT.
[2020-12-04 05:00] VITALS: BP 125/50; PULSE 63; TEMP 97.4
--- NOTE | 2020-12-04 07:38 | NUR ---
CHANGE OF SHIFT REPORT GIVEN TO DAY SHIFT NURSEDENNISE RN.
--- NOTE | 2020-12-04 14:39 | NUR ---
Optometry Assistant faxed clinical updates to [facility].
[2020-12-04 15:19] VITALS: BP 133/65; PULSE 76; TEMP 97.9
--- NOTE | 2020-12-04 17:29 | NUR ---
Patient resting in wheelchair at this time. Patient has been independent in the room today, is able to transfer and ambulate safely. Patient reported that after lunch her stomach was upset, but declined nausea medication. Reports that it still feels a bit 'off' after dinner, but is better than it was. Denies pian or further needs, call light within reach.
--- NOTE | 2020-12-04 20:30 | NUR ---
PT RESTING IN BED. MOD I IN ROOM W/WHEELED WALKER. ENC TO CALL FOR ASSIST IF UNSTEADY. PT AGREED. HAVING BILAT KNEE PAIN. SEE MAR FOR TYLENOL GIVEN. APPLIED VOLTAREN OINTMENT TO BILAT KNEES. CALL LIGHT IN REACH.
[2020-12-05 05:13] VITALS: BP 157/75; PULSE 78; TEMP 98.3
--- NOTE | 2020-12-05 08:04 | NUR ---
Awake and alert upon entry to room, no C/O pain beyond her normal. Shift assessments complete, left Pt sitting in WC.
[2020-12-05 12:41] LABS: INR 2.9 (0.8-3.0); PROTHROMBIN TIME 32.3 SECONDS (9.7-12.8)
[2020-12-05] MEDS ORDERED: COUMADIN4 MG PO (15:17)
[2020-12-05] MEDS ORDERED: HYGROTON 2525 MG/TAB PO (15:19)
[2020-12-05] MEDS ORDERED: ULTRAM 50MG TAB50 MG PO (15:21)
--- NOTE | 2020-12-05 16:24 | NUR ---
Shear Operator Automatic met with patient to follow up before the weekend. Patient has no concerns or questions at this time. Patient to discharge home tomorrow with [facility].
[2020-12-05 17:26] VITALS: BP 136/71; PULSE 78; TEMP 97.8
--- NOTE | 2020-12-05 21:00 | NUR ---
PT MOD I IN ROOM. ABLE TO SAFELY CARE FOR SELF. ENC TO CALL FOR ASSIST IF NEEDED. PT AGREED. STILL HAVING CHRONIC BILAT KNEE PAIN. VOLTAREN APPLIED. CALL LIGHT IN REACH.
--- NOTE | 2020-12-06 05:15 | NUR ---
GAVE TYLENOL FOR BILAT KNEE PAIN. LEVEL 4-5.
[2020-12-06 05:49] VITALS: BP 156/59; PULSE 66; TEMP 97.9
[2020-12-06 07:12] LABS: CALCIUM 9.9 mg/dL (8.4-10.2); CREATININE, serum 1.42 (0.52-1.25); MAGNESIUM 1.6 mg/dL (1.6-2.3); POTASSIUM 3.4 mmol/L (3.4-5.0)
[2020-12-06] MEDS ORDERED: ULTRAM 50MG TAB50 MG PO (11:33)
--- NOTE | 2020-12-06 13:21 | NUR ---
DISCHARGE INSTRUCTIONS REVIEWED WITH PT. QUESTIONS SOLICITED AND ANSWERED.PT LEFT PER WHEEL CHAIR.
--- NOTE | 2020-12-09 10:32 | NUR ---
social group worker notified [facility] of patient's discharge on 12/06/2020 and faxed home health orders.
--- NOTE | 2020-12-10 15:50 | NUR ---
Discharge QIM scores were reviewed by the team. Code of 6 chosen for eating was determined by team discussion to be the most usual performance for this patient during the assessment period.
== END 2020-12-06 12:45 | disposition home health service (06) | DRG 560 ==
PROVIDERS: ADMIT Internal Medicine
DX: S32.592D Other specified fracture of left pubis, subsequent encounter for fracture with routine healing (principal); N17.9 Acute kidney failure, unspecified; E87.1 Hypo-osmolality and hyponatremia; E83.42 Hypomagnesemia; I12.9 Hypertensive chronic kidney disease with stage 1 through stage 4 chronic kidney disease, or unspecified chronic kidney disease; I48.0 Paroxysmal atrial fibrillation; M48.00 Spinal stenosis, site unspecified; M06.9 Rheumatoid arthritis, unspecified; N18.9 Chronic kidney disease, unspecified; K59.00 Constipation, unspecified; W19.XXXD Unspecified fall, subsequent encounter; Z79.891 Long term (current) use of opiate analgesic; Z79.52 Long term (current) use of systemic steroids; Z95.0 Presence of cardiac pacemaker; Z96.642 Presence of left artificial hip joint; Z86.718 Personal history of other venous thrombosis and embolism; Z90.710 Acquired absence of both cervix and uterus; Z88.0 Allergy status to penicillin; Z88.2 Allergy status to sulfonamides; Z91.048 Other nonmedicinal substance allergy status; Z88.1 Allergy status to other antibiotic agents; Z88.8 Allergy status to other drugs, medicaments and biological substances; Z79.899 Other long term (current) drug therapy; Z79.01 Long term (current) use of anticoagulants; Z79.890 Hormone replacement therapy
CPT/HCPCS: 99222-AI; 99231-AI; 99232-AI; 99239; G0378; J7512

== ENCOUNTER 2021-04-02 17:21 | Inpatient (IN) | payer MEDICARE, BC ==
[~2021-04-02] VITALS: Ht 162.6 cm; Wt 64.7 kg
[2021-04-02 18:13] LABS: BASO # 0.1 (0.0-0.2); BASO % 0.6 % (0.0-2.0); EOS % 0.2 % (0-4.0); GRAN # 6.5 (1.4-6.5); GRAN % 77.6 % (42.2-75.2); HEMATOCRIT 38.3 % (37.0-47.0); HEMOGLOBIN 12.2 g/dl (12.5-16.0); LYMPH # 1.1 (1.2-3.4); LYMPH % 13.3 % (20.0-51.0); MEAN CELL VOLUME 96 fl (80.0-100.0); MEAN CORPUSCULAR HEMOGLOBIN 31 pg (27.0-31.0); MEAN CORPUSCULAR HGB CONC 32 g/dl (33.0-37.0); MEAN PLATELET VOLUME 8.9 fl (7.4-10.4); MONO # 0.7 (0.1-0.6); MONO % 8.2 % (1.7-9.3); PLATELET COUNT 288 K/mm3 (130-400); REDCELL DISTRIBUTION WIDTH-CV 13.2 % (11.5-14.5)
[2021-04-02 18:32] LABS: ALBUMIN 4.2 gm/dL (3.4-4.8); BILIRUBIN,TOTAL 0.3 mg/dL (0.2-1.2); CALCIUM 10.7 mg/dL (8.4-10.2); CREATININE, serum 1.5 mg/dL (0.57-1.11); POTASSIUM 4.6 mmol/L (3.5-4.5); TOTAL PROTEIN 7.6 gm/dL (6.2-8.1)
[2021-04-02 18:59] LABS: INR 2.6 (0.8-3.0)
[2021-04-02] MEDS ORDERED: CYMBALTA 20MG20 MG PO (20:49)
[2021-04-02] MEDS ORDERED: TAMBOCOR50 MG PO (20:49)
[2021-04-02] MEDS ORDERED: CALCITRIOL PO (20:51)
[2021-04-02] MEDS ORDERED: COUMADIN 5MG5 MG/TAB PO (20:54)
[2021-04-02] MEDS ORDERED: CARDIZEM CD 12120 MG PO (20:55)
[2021-04-02] MEDS ORDERED: SYNTHROID0.137 MG PO (20:57)
[2021-04-02] MEDS ORDERED: NEXIUM 20MG20 MG PO (20:59)
[2021-04-02] MEDS ORDERED: COZAAR 50MG50 MG/TAB PO (21:01)
[2021-04-02] MEDS ORDERED: ULTRAM 50MG TAB50 MG PO (21:02)
[2021-04-02] MEDS ORDERED: VOLTAREN GEL 1%1 TU TP (21:05)
[2021-04-02] MEDS ORDERED: MIRALAX PA17 GM/Dose PO (21:09)
--- NOTE | 2021-04-02 21:45 | NUR ---
PT ADMITTED TO ROOM 344 FROM ER. LT ARM IN SLING. ELEVATED ON PILLOWS. SEE MAR FOR ANY PAIN MED GIVEN. CALL LIGHT IN REACH. BED ALARM SET.
[2021-04-02] MEDS ORDERED: COUMADIN 1MG1 MG/TAB PO (22:32)
[2021-04-02 23:25] VITALS: BP 160/84; PULSE 71; TEMP 98.4
--- NOTE | 2021-04-02 23:30 | NUR ---
CLARIFIED WITH MARISABEL BERRY IF PT WAS TO BE NPO AT MIDNIGHT. NO NPO ORDERS OBTAINED.
[2021-04-03] VITALS (7 sets, daily range): BP systolic 118–154; BP diastolic 61–106; PULSE 86–131; TEMP 97.8–98.4
--- NOTE | 2021-04-03 00:33 | NUR ---
PT CONTINES RESTING. NO DISTRESS.
--- NOTE | 2021-04-03 01:50 | NUR ---
2:1 ASSIST TO BR. PT HAD 10-15 SEC SYNCOPAL EPISODE. VS 113/[id number]. TOTAL ASSIST BACK TO BED. PT AWAKE AND ALERT. ASKING FOR PAIN MEDICATION. SEE MAR FOR FENTANYL GIVEN. TELE CALLED TO REPORT AFIB W/RVR AT A RATE OF 150 DURING SYNCOPAL EPISODE. AT HIS TIME SHE IS AFLUTTER SALVATORE CONTROLLED RATE AT 94.
--- NOTE | 2021-04-03 02:13 | NUR ---
NOTIFIED MARISABEL BERRY OF SYNCOPAL EPISODE. SEE NEW ORDERS.
[2021-04-03 03:10] LABS: BASO # 0.1 (0.0-0.2); BASO % 0.6 % (0.0-2.0); EOS # 0.1 (0.0-0.7); EOS % 0.7 % (0-4.0); GRAN # 8.9 (1.4-6.5); GRAN % 78.2 % (42.2-75.2); HEMOGLOBIN 10.4 g/dl (12.5-16.0); LYMPH # 1.4 (1.2-3.4); LYMPH % 12.7 % (20.0-51.0); MEAN CELL VOLUME 95 fl (80.0-100.0); MEAN CORPUSCULAR HEMOGLOBIN 30 pg (27.0-31.0); MEAN CORPUSCULAR HGB CONC 32 g/dl (33.0-37.0); MEAN PLATELET VOLUME 8.9 fl (7.4-10.4); MONO # 0.9 (0.1-0.6); MONO % 7.6 % (1.7-9.3); PLATELET COUNT 242 K/mm3 (130-400); RED BLOOD COUNT 3.43 M/mm3 (4.10-5.30); REDCELL DISTRIBUTION WIDTH-CV 13.4 % (11.5-14.5)
[2021-04-03 03:14] LABS: HEMATOCRIT 32.4 % (37.0-47.0)
[2021-04-03 03:18] LABS: INR 2.4 (0.8-3.0); PROTHROMBIN TIME 26.8 SECONDS (9.7-12.8)
--- NOTE | 2021-04-03 03:20 | NUR ---
NOTIFIED MARISABEL RG REGARDING BP 152/106. NEW INSTRUCTION TO RECHECK IN 1 HR AND REPORT RESULTS.
--- NOTE | 2021-04-03 04:03 | NUR ---
BP 154/78 REPORTED TO MARISABEL BERRY. NO FURTHER ORDERS.
[2021-04-03 04:05] LABS: MAGNESIUM 1.6 mg/dL (1.6-2.6)
[2021-04-03 04:09] LABS: CREATININE, serum 1.2 mg/dL (0.57-1.11); POTASSIUM 3.8 mmol/L (3.5-4.5)
[2021-04-03 04:30] LABS: TSH w REFLEX 0.447 uIU/mL (0.350-4.940)
[2021-04-03 06:13] LABS: COLLECTION METHOD CLEAN CATCH
[2021-04-03 06:25] LABS: PH 6 (5-8); SQUAMOUS EPITHELIAL 0-2 /hpf; URINE APPEARANCE Hazy; URINE BACTERIA None Seen /hpf; URINE BILIRUBIN Negative (NEGATIVE); URINE BLOOD Negative (NEGATIVE); URINE COLOR Yellow; URINE GLUCOSE Negative (NEGATIVE); URINE KETONE Negative (NEGATIVE); URINE LEUKOCYTE ESTERASE Negative (NEGATIVE); URINE NITRATE Negative (NEGATIVE); URINE PROTEIN(semi-quant) 1+ (NEGATIVE); URINE RBC 0-2 /hpf; URINE UROBILINOGEN Negative (NEGATIVE)
--- NOTE | 2021-04-03 08:14 | NUR ---
Pt assessment complete. Pt is A/O x4. Her breathing is even and unlabored on RA. Pt denies SOB. Pain to L arm 09/17, PRN pain medication administered. Pt denies any other concerns at this time. POC discussed with patient who verbalizes understanding. Call light within reach.
--- NOTE | 2021-04-03 09:27 | NUR ---
Initial visit attempt; Patient sleeping, Board Layer left card offering God's blessings and information regarding the availability of spiriritual care at [place].
--- NOTE | 2021-04-03 10:22 | NUR ---
RAFAL met with the patient, her (Capo, ph#[phone]), and daughter (Silvana, ph#[phone]), to discuss discharge plan. The patient lives in [place] with her . Silvana lives in [place]. The patient reports that she is independent with ADLs and has a cane and walker. The patient's PCP is Dr. Santy Robledo and she receives her medications from [facility]. She reports no difficulties obtaining her meds. The patient does not have a DPOA-HC in EMR, but she states that she does have one completed and that it designates Silvana. She states that she has copies at home. RAFAL attempted to contact supply chain analyst, Linnea, with [facility] to inquire if they have a copy. SW left her a voicemail. The patient has a left humerus fracture. The patient and her family are interested in returning home with home health upon discharge, but they would like to see how the patient does with therapy. Silvana reports that the patient had [facility] in the past and they would prefer them again. RAFAL contacted and faxed a referral to Izzy at [facility]. Izzy reports that they are able to accept the patient for services. The patient's daughter requested to speak to pharmacy about the patient's Humira. RAFAL notified the hospitalist and pharmacist. Silvana was also interested in speaking to Financial Counseling about bills that the patient is receiving. RAFAL notified Financial Counseling. Awaiting ortho's recs. PT/OT plan on holding off on evals until a plan of care has been determined. SW to continue to follow. *Discharge plan: home with and home health. Awaiting therapy recs*
--- NOTE | 2021-04-03 11:14 | NUR ---
RAFAL received the patient's DPOA-HC, via fax, from [employer]. The patient's DPOA-HC is her . The first alternate is her daughter, Silvana. RAFAL placed a copy in the patient's chart and updated Silvana on the above.
--- NOTE | 2021-04-03 16:15 | NUR ---
Pt heart rate up in the 130s. Dr Rose notified and informed that pt was just getting up to the side of the bed. Will monitor once pt gets back comfortable in to bed as she is needing to go to the restroom.
--- NOTE | 2021-04-03 16:44 | NUR ---
Assisted pt to the restroom. She did well with one assist with a cane. Pt stated that her pain is ok and does not need pain medication. Lungs clear, heart rate tachy. Bowel sounds audible all quadrants. Left arm in a sling. Bruising noted to her left eye and to her left hip from fall. SCDs off at this time per request. No other needs, call light within reach. Heart rate back in the 90s.
--- NOTE | 2021-04-03 21:00 | NUR ---
PT IS ASSISTED INTO BR WITH ONE ASSIST ET GAIT BELT. PT DOES NOT HAVE A CANE ET STATES THAT THE ONE SHE USED EARLIER TODAY WAS HER 'S. GAIT IS UNSTEADY ET PT HAS DIFFICULTY FOLLOWING DIRECTIONS R/T BEING HARD OF HEARING. PT URINATES ET IS ASSISTED BACK INTO BED WITH 2 PERSON ASSIST ET GAIT BELT. SLING IN PLACE ON LEFT ARM. CAP REFILL IS <3 SEC, PT HAS MOVEMENT ET NORMAL SENSATION IS ALL FINGERS. RADIAL PULSE IS STRONG WHEN PALPATED. RESPIRATIONS UNLABORED. BED ALARM ON. CALL LIGHT WITHIN REACH.
[2021-04-04 04:08] VITALS: BP 142/80; PULSE 69; TEMP 97.8
--- NOTE | 2021-04-04 05:51 | NUR ---
PT USES CALL LIGHT FOR ASSISTANCE TO BATHROOM. PT USES BEDSIDE COMMODE WITH 1 ASSIST ET GAITBELT. URINATES IN COMMODE ET IS INCONTINENT. PAD IN UNDERWEAR CHANGED. PT NEEDS ASSISTANCE GETTING BACK INTO BED ET LIFTING FEET. DENIES OTHER NEEDS @ THIS TIME. REFUSES SCDS. BED ALARM ON, CALL LIGHT WITHIN REACH.
[2021-04-04 07:09] LABS: MEAN CELL VOLUME 96 fl (80.0-100.0); MEAN CORPUSCULAR HGB CONC 31 g/dl (33.0-37.0); MEAN PLATELET VOLUME 8.9 fl (7.4-10.4); PLATELET COUNT 238 K/mm3 (130-400); RED BLOOD COUNT 3.13 M/mm3 (4.10-5.30); REDCELL DISTRIBUTION WIDTH-CV 13.4 % (11.5-14.5)
[2021-04-04 07:10] LABS: HEMATOCRIT 30.1 % (37.0-47.0); HEMOGLOBIN 9.4 g/dl (12.5-16.0); MEAN CORPUSCULAR HEMOGLOBIN 30 pg (27.0-31.0)
[2021-04-04 07:15] LABS: INR 2.5 (0.8-3.0); PROTHROMBIN TIME 27.4 SECONDS (9.7-12.8)
[2021-04-04 07:22] VITALS: BP 140/79; PULSE 79; TEMP 98
[2021-04-04 07:38] LABS: CALCIUM 9.8 mg/dL (8.4-10.2); CREATININE, serum 1.07 mg/dL (0.57-1.11); MAGNESIUM 1.5 mg/dL (1.6-2.6); POTASSIUM 3.9 mmol/L (3.5-4.5)
--- NOTE | 2021-04-04 08:00 | NUR ---
PATIENT IS A&O. VSS ON TELE. HEART SOUNDS ARE IRREGULAR. PATIENT HAS HX OF A-FIB BUT IS RATE CONTROLED IN THE 70'S. C/O PAIN IN LEFT SHOULDER RATED AT 4/10. GAVE PRN ULTRAM WITH AM MEDS. NO C/O N/V. IV FLUIDS INFUSING VIA PUMP INTO RIGHT AC IV. BREAKFAST TRAY ORDERED. HEAD TO TOE ASSESSMENT COMPLETE, SEE CHARTING. DNR STATUS.
[2021-04-04 11:58] VITALS: BP 116/49; PULSE 87; TEMP 97.4
[2021-04-04 15:08] VITALS: BP 106/50; PULSE 77; TEMP 98.2
[2021-04-04 17:00] LABS: HEMATOCRIT 28.5 % (37.0-47.0); HEMOGLOBIN 9.2 g/dl (12.5-16.0)
[2021-04-04 17:07] LABS: PROTHROMBIN TIME 22.7 SECONDS (9.7-12.8)
[2021-04-04 20:31] VITALS: BP 114/58; PULSE 70; TEMP 98.4
[2021-04-05] VITALS (7 sets, daily range): BP systolic 110–155; BP diastolic 49–78; PULSE 71–105; TEMP 97.4–98.4
--- NOTE | 2021-04-05 06:15 | NUR ---
PT IN BED. NO N/V. TRAMADOL FOR PAIN TO LUE. GAIT SOMEWHAT UNSTEADY. SLING ON.
[2021-04-05 06:33] LABS: MEAN CELL VOLUME 94 fl (80.0-100.0); MEAN CORPUSCULAR HGB CONC 32 g/dl (33.0-37.0); MEAN PLATELET VOLUME 9.3 fl (7.4-10.4); PLATELET COUNT 237 K/mm3 (130-400); RED BLOOD COUNT 2.54 M/mm3 (4.10-5.30); REDCELL DISTRIBUTION WIDTH-CV 13.3 % (11.5-14.5)
[2021-04-05 06:45] LABS: HEMATOCRIT 23.8 % (37.0-47.0); HEMOGLOBIN 7.7 g/dl (12.5-16.0); MEAN CORPUSCULAR HEMOGLOBIN 30 pg (27.0-31.0)
[2021-04-05 06:52] LABS: INR 1.3 (0.8-3.0); PROTHROMBIN TIME 14.2 SECONDS (9.7-12.8)
[2021-04-05 06:54] LABS: CALCIUM 9.3 mg/dL (8.4-10.2); CREATININE, serum 0.96 mg/dL (0.57-1.11); MAGNESIUM 1.8 mg/dL (1.6-2.6); POTASSIUM 3.5 mmol/L (3.5-4.5)
[2021-04-05 14:20] LABS: HEMATOCRIT 24.5 % (37.0-47.0)
--- NOTE | 2021-04-05 19:20 | NUR ---
IV SITE TO RT FOREARM LEAKING AND EDEMATOUS. RESTARTED #20 INSYTE TO RFA ON 1ST ATTEMPT. IVPB MAG INFUSING WITHOUT PROBLEM. DR HERNANDEZ IN TO SEE PT.
--- NOTE | 2021-04-05 21:15 | NUR ---
PT TAKES HS MEDS INCLUDING NORCO FOR LEFT ARM PAIN. IS ALERT, CAHTO. SL TO RT FOREARM FLUSHES WELL. HAVE PLACED PT IN HOSPITAL GOWN IN PREPARATION FOR SURGERY IN AM. LEFT ARM IN SLING. STERI STRIPS TO LEFT ELBOW SKIN TEAR INTACT, EDEMA NOTED TO LEFT UPPER ARM. BED ALARM ON.
[2021-04-06] VITALS (394 sets, daily range): BP systolic 74–157; BP diastolic 47–85; PULSE 59–70; TEMP 98.1–99.5; O2SAT 85–100
--- NOTE | 2021-04-06 06:00 | NUR ---
PT TAKES SCHEDULED AM MED WITH SIP OF WATER. SURGERY THIS AM.
[2021-04-06 06:44] LABS: MEAN CELL VOLUME 94 fl (80.0-100.0); MEAN CORPUSCULAR HGB CONC 33 g/dl (33.0-37.0); MEAN PLATELET VOLUME 9.1 fl (7.4-10.4); PLATELET COUNT 228 K/mm3 (130-400); RED BLOOD COUNT 2.31 M/mm3 (4.10-5.30); REDCELL DISTRIBUTION WIDTH-CV 13.6 % (11.5-14.5)
[2021-04-06 06:50] LABS: HEMATOCRIT 21.8 % (37.0-47.0); HEMOGLOBIN 7.1 g/dl (12.5-16.0); MEAN CORPUSCULAR HEMOGLOBIN 31 pg (27.0-31.0)
[2021-04-06 06:56] LABS: PROTHROMBIN TIME 11.5 SECONDS (9.7-12.8)
[2021-04-06 07:10] LABS: CALCIUM 9.4 mg/dL (8.4-10.2); CREATININE, serum 1.26 mg/dL (0.57-1.11); POTASSIUM 3.9 mmol/L (3.5-4.5)
--- NOTE | 2021-04-06 08:00 | NUR ---
PATIENT IS A&O. VSS ON TELE. NO C/O PAIN OR NAUSEA. AND DAUGHTER AT BEDSIDE. PATIENT SCHEDULED FOR SURGERY THIS AM. NPO. CONSENT ON CHART. IV FLUIDS HUNG VIA GRAVITY. PATIENT IS DNR STATUS. HEAD TO TOE ASSESSMENT COMPLETE, SEE CHARTING. PATIENT GIVEN AM MEDS WITH SIPS. NO OTHER NEEDS AT THIS TIME. CALL LIGHT IN REACH.
--- NOTE | 2021-04-06 09:00 | NUR ---
ORTHO & ANESTHESIA NOTIFIED OF HGB OF 7.1 AND A CROSSMATCH & UNIT OF BLOOD ARE ORDERED, SEE ORDERS. PACU AT BEDSIDE TO TAKE PATIENT DOWN TO OR. CONSENT ON CHART. IV FLUIDS INFUSING VIA GRAVITY INTO RIGHT FORARM IV. PATIENT GOING DOWN TO OR VIA BED. FAMILY AT BEDSIDE.
--- NOTE | 2021-04-06 11:27 | NUR ---
PT brought over by OR staff. Pt is post code in OR. PT is currently awake and talking on oxymask 5L. PT is put on ICU monitors. BP is low. Orders received for levophed from Dr. Mata. Levophed titrated per order. PTs lung splitter are equal. AOx4. PTs pulses are 2+.
--- NOTE | 2021-04-06 11:45 | NUR ---
NURSING STAFF NOTIFIED THAT PATIENT WILL BE TRANSFERING TO ICU POST CODE IN OR. CALLED ICU NURSE FOR REPORT, WHO WAS ABOUT TO SETTLE THE PATIENT. ICU NURSE WILL CALL BACK WHEN READY FOR REPORT.
--- NOTE | 2021-04-06 12:15 | NUR ---
& daughter updated on patient status; both at bedside. Daughter putting hearing aids in patient's ears.
--- NOTE | 2021-04-06 13:29 | NUR ---
PT SPO2 99% RA. PT does not wear O2 at home.
[2021-04-06 14:45] LABS: BASO # 0.1 (0.0-0.2); BASO % 0.5 % (0.0-2.0); EOS % 0.3 % (0-4.0); GRAN # 10.2 (1.4-6.5); GRAN % 85.9 % (42.2-75.2); LYMPH # 0.7 (1.2-3.4); LYMPH % 6.2 % (20.0-51.0); MEAN CELL VOLUME 95 fl (80.0-100.0); MEAN CORPUSCULAR HGB CONC 32 g/dl (33.0-37.0); MONO # 0.8 (0.1-0.6); MONO % 6.6 % (1.7-9.3); PLATELET COUNT 202 K/mm3 (130-400); REDCELL DISTRIBUTION WIDTH-CV 14.3 % (11.5-14.5)
[2021-04-06 14:48] LABS: HEMATOCRIT 27.5 % (37.0-47.0); HEMOGLOBIN 8.7 g/dl (12.5-16.0); MEAN CORPUSCULAR HEMOGLOBIN 30 pg (27.0-31.0)
[2021-04-06 15:03] LABS: ALBUMIN 2.7 gm/dL (3.4-4.8); BILIRUBIN,TOTAL 0.6 mg/dL (0.2-1.2); CALCIUM 9.2 mg/dL (8.4-10.2); CREATININE, serum 1.26 mg/dL (0.57-1.11); POTASSIUM 4.3 mmol/L (3.5-4.5); TOTAL PROTEIN 5.4 gm/dL (6.2-8.1)
[2021-04-06 15:12] LABS: TROPONIN-I 1.618 ng/mL (0.00-0.033)
--- NOTE | 2021-04-06 15:57 | NUR ---
Report givent to ANDREI Rees.
--- NOTE | 2021-04-06 16:28 | NUR ---
Counter Person met with patient's , Capo and daughter, Silvana who had questions about patient's code status. SW advised that this was something patient would need to discuss with the physician. RAFAL updated RN, Jaky.
--- NOTE | 2021-04-06 20:24 | NUR ---
MISS MALCOLM IS RESTING COMFRTABLY IN BED. NO SIGNS OF DISTRESS. PATIENT STATED SHE WANTED TO GO TO BED SO LIGHTS HAVE BEEN TURNED OFF. WILL CONTINUE TO MONITOR
[2021-04-07] VITALS (556 sets, daily range): BP systolic 130–162; BP diastolic 46–81; PULSE 59–64; TEMP 97.7–98.5; O2SAT 89–99
[2021-04-07 05:38] LABS: BASO % 0.1 % (0.0-2.0); GRAN # 5.9 (1.4-6.5); GRAN % 81.7 % (42.2-75.2); LYMPH # 0.8 (1.2-3.4); LYMPH % 10.7 % (20.0-51.0); MEAN CELL VOLUME 95 fl (80.0-100.0); MEAN CORPUSCULAR HGB CONC 32 g/dl (33.0-37.0); MEAN PLATELET VOLUME 9.2 fl (7.4-10.4); MONO # 0.5 (0.1-0.6); PLATELET COUNT 220 K/mm3 (130-400); RED BLOOD COUNT 2.95 M/mm3 (4.10-5.30); REDCELL DISTRIBUTION WIDTH-CV 14.6 % (11.5-14.5)
[2021-04-07 05:39] LABS: MEAN CORPUSCULAR HEMOGLOBIN 31 pg (27.0-31.0)
[2021-04-07 05:52] LABS: CALCIUM 9.7 mg/dL (8.4-10.2); CREATININE, serum 1.16 mg/dL (0.57-1.11); POTASSIUM 4.3 mmol/L (3.5-4.5)
--- NOTE | 2021-04-07 10:51 | NUR ---
long term care social worker attended clinical rounds and possible transfer to [facility].
--- NOTE | 2021-04-07 12:27 | NUR ---
First visit from the shank piece tacker. No needs right now.
--- NOTE | 2021-04-07 18:00 | NUR ---
PATIENT ADMITED INTO ROOM 328 FROM ICU POST CODE. A&O. TELE INPLACE. SLING TO LUE. NO C/O PAIN OR NAUSEA. HEPARIN GTT INFUSING AT 8CC/HR INTO RIGHT UPPER ARM PICC. PATIENT RESTING UP IN BED. NO NEEDS AT THIS TIME. CALL LIGHT IN REACH. DRUM BARKER OPERATOR TAKING OVER CARE
--- NOTE | 2021-04-07 18:19 | NUR ---
Patient trasnferring to Surgical room 328, I have called report to ANDREI Grimaldo, CUTTER ALUMINUM SHEET from surgical is transporting patient up via wheelchair
--- NOTE | 2021-04-07 20:00 | NUR ---
PATIENT IS ALERT AND ORIENTED X4. PATIENT HAS SLING TO LEFT SHOULDER AND PICC TO RIGHT UPPER ARM. PATIENT HAS HEPARIN DRIP RUNNING AT 8CC/HR. PATIENT IS A FULL CODE AND ON TELE. PATIENT GIVEN PAIN MEDS PER ORDERS. PATIENT DENIES FURTHER NEEDS AT THIS TIME. CALL LIGHT WITHIN REACH. HEAD TO TOE ASSESSMENT COMPLETE.
--- NOTE | 2021-04-07 21:30 | NUR ---
PATIENT COMPLAINING OF LEFT HAND SWELLING. ICE PLACED ON HAND AND ELEVATED WITH PILLOW.
--- NOTE | 2021-04-07 23:15 | NUR ---
HEPARIN XA IS 0.71. HEPARIN DRIP NOW RUNNING AT 6.5 CC/HR PER ORDERS.
[2021-04-08 03:22] VITALS: BP 139/58; PULSE 60; TEMP 98.5
[2021-04-08 06:06] LABS: MEAN CELL VOLUME 94 fl (80.0-100.0); MEAN CORPUSCULAR HGB CONC 33 g/dl (33.0-37.0); MEAN PLATELET VOLUME 9.2 fl (7.4-10.4); PLATELET COUNT 221 K/mm3 (130-400); RED BLOOD COUNT 2.63 M/mm3 (4.10-5.30); REDCELL DISTRIBUTION WIDTH-CV 14.5 % (11.5-14.5)
[2021-04-08 06:11] LABS: HEMATOCRIT 24.6 % (37.0-47.0); HEMOGLOBIN 8.1 g/dl (12.5-16.0); MEAN CORPUSCULAR HEMOGLOBIN 31 pg (27.0-31.0)
--- NOTE | 2021-04-08 06:24 | NUR ---
PATIENT DID WELL THROUGHOUT NIGHT. SLEPT MOST OF NIGHT. CONTINUED HEPARIN DRIP THROUGHOUT NIGHT. PATIENT MORE CONFUSED THIS MORNING THAN USUAL BUT JUST WOKEN UP. FORGOT WHERE SHE WAS BUT STAYED PLEASANT. NO FURTHER NEEDS AT THIS TIME. WILL REPORT TO DAYSHIFT
[2021-04-08 06:37] LABS: CALCIUM 9.1 mg/dL (8.4-10.2); CREATININE, serum 1.17 mg/dL (0.57-1.11); MAGNESIUM 2.1 mg/dL (1.6-2.6); POTASSIUM 3.8 mmol/L (3.5-4.5)
--- NOTE | 2021-04-08 08:02 | NUR ---
TELEMETRY CALLED AND REPORTED PT HAVING PAC AND PVC'S CALLED AND REPORTED NOTIFICATION TO REGLA FITZPATRICK. NO NEW ORDERS.
--- NOTE | 2021-04-08 08:08 | NUR ---
NEW ORDERS RECIEVED, CALLED RT FOR EKG.
--- NOTE | 2021-04-08 08:12 | NUR ---
UPDATED LISA TUCKER WITH PT STATUS AND RELAYED MESSAGE FROM TELE.
--- NOTE | 2021-04-08 08:22 | NUR ---
REVIEWED HEP GTTS WITH PERFECTO PARTS ROOM CLERK.
[2021-04-08 08:23] VITALS: BP 149/88; PULSE 62; TEMP 97.9
--- NOTE | 2021-04-08 08:59 | NUR ---
PT'S DAUGHTER REQUESTING TRANSFER TO [facility]. NOTIFIED MILA CAMPBELLPLANT GUIDE. HOSPITALIST TO FACILITATE IF APPROPRIATE.
--- NOTE | 2021-04-08 10:08 | NUR ---
PT UP TO BR WITH SBAX1. RETURNED TO RECLINER. DAUGHTER AT BEDSIDE ASSISTING WITH AM CARES AND HYGIENE. STUDENT NURSE LUCRETIA ALSO ASSISTING WITH AM CARES. MED REC UPDATED. EKG COMPLETE PER ORDERS. REVIEWED MEDS WITH PT AND DAUGHTER.
[2021-04-08 10:46] VITALS: BP 146/46; PULSE 62; TEMP 97.5
[2021-04-08 16:47] VITALS: BP 146/60; PULSE 87; TEMP 97.9
[2021-04-08 20:02] VITALS: BP 145/65; PULSE 88; TEMP 97.9
--- NOTE | 2021-04-08 21:24 | NUR ---
Patient assessed around 2014. Denies pain and discomfort at this time. Sling to left arm. PICC to RUE. HepXa drawn, and increased heparin drip per protocol. Will recheck around 214. Dr. Lynch and Zofia were in room earlier to discuss cares with patient and daughter. Patient voices no further questions, needs, or concerns at this time. Resting in bed with call light within reach.
[2021-04-08 23:28] VITALS: BP 142/56; PULSE 57; TEMP 98
[2021-04-09 03:26] VITALS: BP 156/62; PULSE 60; TEMP 98
--- NOTE | 2021-04-09 05:02 | NUR ---
Patient has been resting in bed with call light within reach. Heparin drip continues to PICC to RUE per orders/protocol. Will recheck at 0900. Has denied having pain and discomfort this shift. Voices no questions, needs, or concerns at this time.
[2021-04-09 07:23] VITALS: BP 169/93; PULSE 101; TEMP 97.5
--- NOTE | 2021-04-09 08:00 | NUR ---
PATIENT IS A&O. ASSISTED TO BATHROOM WITH 1 ASSIST AND CANE. PATIENT NOW RESTING UP IN BEDSIDE CHAIR. SLING TO LUE. NOTED +2 TO LUE. C/O PAIN RATED AT 4/10. GAVE PRN ULTRAM WITH AM MEDS. VSS WITH TELE INPLACE, IRREGULAR. PATIENT HAS HX OF A-FIB. NC Q2H. HEAD TO TOE ASSESSMENT COMPLETE, SEE CHARTING. NO C/O N/V. HEP GTT INFUSING VIA PUMP INTO RIGHT UPPER ARM PICC. PLAN IS TO TRY AND TRANSFER PATIENT TO FOR SURGICAL INTERVENTION. NO OTHER NEEDS AT THIS TIME. CALL LIGHT IN REACH.
--- NOTE | 2021-04-09 09:00 | NUR ---
DAUGHTER NOW AT BEDSIDE.
--- NOTE | 2021-04-09 09:40 | NUR ---
NO AM LAB RESULTED. NURSE CALLED LAB. AWAITING STITCH WELDER FOR DRAW
--- NOTE | 2021-04-09 10:45 | NUR ---
CREW CHIEF STILL NOT UP ON FLOOR. AM LABS DRAWN OFF OF PICC. PATIENT STILL NEEDS HEPXA DRAWN. LAB CALLED AGAIN.
[2021-04-09 12:08] VITALS: BP 115/56; PULSE 66; TEMP 97.8
--- NOTE | 2021-04-09 13:00 | NUR ---
LAB CALLED CRITICAL HEPXA, THAT SHOULD HAVE BEEN DRAWN AT 0900, OF 0.81. NURSING CALLED DOWN SEVERAL TIME TO GET LAB. HEPARIN GTT NOW STOPPED. HOSPITALIST AT BEDSIDE.
--- NOTE | 2021-04-09 13:00 | NUR ---
PATIENT HAS BEEN ACCEPTED TO [facility]. HOSPITALIST NOTIFED GAS PUMPING STATION SUPERVISOR. AWAITING ORDERS AND EMS ARRANGMENTS.
--- NOTE | 2021-04-09 14:25 | NUR ---
The patient is to transfer to [facility] today, 04/09. No additional needs at this time.
--- NOTE | 2021-04-09 14:29 | NUR ---
CALLED HOSPITALIST ABOUT HEP GTT. PATIENT'S LAST HEPXA WAS CRITICAL HIGH, ORDERS TO KEEP HEPARIN ON HOLD DURING TRANSFER. PATIENT TO HAVE HEPXA DRAWN ON ADMIT TO [facility]. SEE ALL TRANSFER ORDERS.
--- NOTE | 2021-04-09 15:05 | NUR ---
PATIENT DISCHARGING VIA EMS TO [facility]. INFO PACKET GIVEN TO EMS. TELE DC'D. PATIENT DISCHARGING WITH RIGHT UPPER ARM PICC TO INT. HEPARIN GTT CURRENTLY ON HOLD. PATIENT TO HAVE HEPXA RECHECKED UPON ARRIVAL TO [facility]. REPORT GIVEN TO EMS. SEE ORDERS. ATTEMPTED TO CALL NURSE REPORT, [facility] NURSE UNAVAILABLE, LEFT PHONE NUMBER FOR REPORT. PATIENT DISCHARGED WITH DAUGHTER FOLLOWING EMS.
--- NOTE | 2021-04-09 15:15 | NUR ---
CARLIN NURSE CALLED BACK FOR REPORT, GIVEN
== END 2021-04-09 15:02 | disposition short-term general hospital (02) | DRG 562 ==
LOC: COL.ER 17:21 → SURG 20:40 → ICU 20:40 → SURG 23:00 → ICU 04-06 11:34 → SURG 04-07 18:03
PROVIDERS: Emergency Medicine; Internal Medicine; Nurse Practitioner; Nurse Practitioner Family; Physician Assistant; ADMIT Family Medicine
PROC: 2W3BXYZ Immobilization of Left Upper Arm using Other Device (ICD-10-PCS; 2021-04-02)
PROC: 02HV33Z Insertion of Infusion Device into Superior Vena Cava, Percutaneous Approach (ICD-10-PCS; principal; 2021-04-06)
DX: S42.222A 2-part displaced fracture of surgical neck of left humerus, initial encounter for closed fracture (principal); I49.01 Ventricular fibrillation; I21.4 Non-ST elevation (NSTEMI) myocardial infarction; I12.9 Hypertensive chronic kidney disease with stage 1 through stage 4 chronic kidney disease, or unspecified chronic kidney disease; N18.9 Chronic kidney disease, unspecified; M06.9 Rheumatoid arthritis, unspecified; S00.03XA Contusion of scalp, initial encounter; S70.12XA Contusion of left thigh, initial encounter; Z66 Do not resuscitate; I95.9 Hypotension, unspecified; E03.9 Hypothyroidism, unspecified; I48.0 Paroxysmal atrial fibrillation; Z20.822 Contact with and (suspected) exposure to COVID-19; I49.5 Sick sinus syndrome; I34.0 Nonrheumatic mitral (valve) insufficiency; E83.52 Hypercalcemia; D64.9 Anemia, unspecified; E83.42 Hypomagnesemia; M81.0 Age-related osteoporosis without current pathological fracture; R59.0 Localized enlarged lymph nodes; W01.0XXA Fall on same level from slipping, tripping and stumbling without subsequent striking against object, initial encounter; Y92.002 Bathroom of unspecified non-institutional (private) residence as the place of occurrence of the external cause; Z79.82 Long term (current) use of aspirin; Z95.0 Presence of cardiac pacemaker; Z85.43 Personal history of malignant neoplasm of ovary; Z92.21 Personal history of antineoplastic chemotherapy; Z90.710 Acquired absence of both cervix and uterus; Z90.49 Acquired absence of other specified parts of digestive tract; Z79.52 Long term (current) use of systemic steroids; Z79.891 Long term (current) use of opiate analgesic; Z79.01 Long term (current) use of anticoagulants; Z53.8 Procedure and treatment not carried out for other reasons; Z96.82 Presence of neurostimulator; Z88.0 Allergy status to penicillin; Z88.2 Allergy status to sulfonamides; Z88.1 Allergy status to other antibiotic agents
CPT/HCPCS: 99223-AI; 99233-AI; 99239; C1751; C1892; C8924; J0171; J0690; J1644; J1720; J2250; J2370; J2795; J3010; J3475; J7030; J7050; J7512; P9016; Q9957; Q9967

== ENCOUNTER 2021-06-23 09:35 | Outpatient (CLI) | payer MEDICARE, BC ==
[~2021-06-23] VITALS: Ht 162.6 cm; Wt 56.0 kg
[2021-06-23] VITALS (7 sets, daily range): BP systolic 141–168; BP diastolic 67–79; PULSE 60; TEMP 98.3
[~2021-06-23 09:35] MED LIST changes: +CALCITRIOL PO; +CARDIZEM CD 12120 MG PO; +COUMADIN 1MG1 MG/TAB PO; +CYMBALTA 20MG20 MG PO; +MIRALAX PA17 GM/Dose PO
[2021-06-23] MEDS ORDERED: TOPROL XL100 MG PO (10:28)
[2021-06-23] MEDS ORDERED: COD LIVER OIL1 CAP PO (10:30)
[2021-06-23] MEDS ORDERED: ALDACTONE 25MG25 M1 PO (10:32)
[2021-06-23] MEDS ORDERED: ACIDOPHILIS PO (10:32)
[2021-06-23] MEDS ORDERED: COUMADIN 5MG5 MG/TAB PO (10:33)
[2021-06-23] MEDS ORDERED: COZAAR 50MG50 MG/TAB PO (10:33)
[2021-06-23] MEDS ORDERED: APRESOLINE 25MG25 MG PO (10:33)
[2021-06-23] MEDS ORDERED: NEXIUM 20MG20 MG PO (10:34)
[2021-06-23] MEDS ORDERED: MIRALAX PA17 GM/Dose PO (10:35)
[2021-06-23] MEDS ORDERED: ULTRAM 50MG TAB50 MG PO (10:35)
--- NOTE | 2021-06-23 11:30 | NUR ---
Pt tolerated infusion and 1 hr obs period without issue. INT DC'd with catheter intact. She is assisted out by wheelchair to car.
== END 2021-06-23 11:30 | disposition home or self-care (01) ==
LOC: EUO 09:35
DX: U07.1 COVID-19 (principal)
CPT/HCPCS: M0245

== ENCOUNTER → 2021-08-19 | Outpatient (CLI) | payer MEDICARE, BC ==
[~2021-08-19] MED LIST changes: +ACIDOPHILIS PO; +ALDACTONE 25MG25 M1 PO; +TOPROL XL100 MG PO
== END ==
LOC: COL.RAD 14:17
DX: S06.5X9A Traumatic subdural hemorrhage with loss of consciousness of unspecified duration, initial encounter (principal)

== ENCOUNTER 2021-10-27 15:47 | Emergency (ER) | payer MEDICARE, BC ==
[~2021-10-27] VITALS: Ht 162.6 cm; Wt 59.1 kg
[2021-10-27 16:27] LABS: BASO # 0.1 K/mm3 (0.0-0.2); BASO % 0.8 % (0.0-2.0); EOS # 0.1 K/mm3 (0.0-0.7); EOS % 0.8 % (0.0-4.0); GRAN # 5.6 K/mm3 (1.4-6.5); GRAN % 74.1 % (42.2-75.2); HEMOGLOBIN 10.1 g/dl (12.5-16.0); LYMPH # 1.3 K/mm3 (1.2-3.4); LYMPH % 16.8 % (20.0-51.0); MEAN CELL VOLUME 95 fl (80.0-100.0); MEAN CORPUSCULAR HEMOGLOBIN 32 pg (27-31); MEAN CORPUSCULAR HGB CONC 33 g/dl (33.0-37.0); MEAN PLATELET VOLUME 9.1 fl (7.4-10.4); MONO # 0.5 K/mm3 (0.1-0.6); MONO % 7.1 % (1.7-9.3); PLATELET COUNT 273 K/mm3 (130-400); RED BLOOD COUNT 3.21 M/mm3 (4.10-5.30); REDCELL DISTRIBUTION WIDTH-CV 12.5 % (11.5-14.5)
[2021-10-27 16:34] LABS: HEMATOCRIT 30.6 % (37.0-47.0)
[2021-10-27 16:45] LABS: ALANINE AMINOTRANSFERASE 11 U/L (0-55); ALBUMIN 3.8 gm/dL (3.4-4.8); ALKALINE PHOSPHATASE 71 U/L (40-150); ANION GAP 9 mmol/L (7-16); AST,SGOT 16 U/L (5-34); BILIRUBIN,TOTAL 0.2 mg/dL (0.2-1.2); BLOOD UREA NITROGEN 29 mg/dL (10-20); CALCIUM 9.9 mg/dL (8.4-10.2); CARBON DIOXIDE 22 mmol/L (23-31); CHLORIDE 100 mmol/L (98-107); GLUCOSE 131 mg/dL (70-99); LIPASE 27 U/L (8-78); POTASSIUM 4.9 mmol/L (3.5-4.5); SODIUM 131 mmol/L (136-145); TOTAL PROTEIN 6.6 gm/dL (6.2-8.1)
[2021-10-27 16:58] LABS: INR 1.2 (0.8-3.0); PROTHROMBIN TIME 12.8 SECONDS (9.7-12.8)
[2021-10-27 17:05] LABS: TSH w REFLEX 0.097 uIU/mL (0.350-4.940)
[2021-10-27 17:06] LABS: TROPONIN-I < 0.010 ng/mL (0.00-0.033)
[2021-10-27 17:38] LABS: COLLECTION METHOD CLEAN CATCH
[2021-10-27 17:47] LABS: MUCOUS Present (NOT PRESENT); PH 7 (5-8); SQUAMOUS EPITHELIAL 0-2 /hpf (0-10); URINE APPEARANCE Hazy (CLEAR/HAZY); URINE BACTERIA Rare /hpf (NONE SEEN); URINE BILIRUBIN Negative (NEGATIVE); URINE BLOOD Negative (NEGATIVE); URINE COLOR Yellow (YELLOW); URINE GLUCOSE Negative (NEGATIVE); URINE KETONE Negative (NEGATIVE); URINE LEUKOCYTE ESTERASE 1+ (NEGATIVE); URINE NITRATE Positive (NEGATIVE); URINE PROTEIN(semi-quant) Negative (NEGATIVE); URINE UROBILINOGEN Negative (NEGATIVE)
[2021-10-27 19:00] VITALS: BP 149/94; PULSE 81; TEMP 97.8
== END 2021-10-27 19:05 | disposition short-term general hospital (02) ==
LOC: COL.ER 15:47
PROVIDERS: Emergency Medicine
DX: S06.5X0A Traumatic subdural hemorrhage without loss of consciousness, initial encounter (principal); I48.91 Unspecified atrial fibrillation; Z87.820 Personal history of traumatic brain injury; Z79.01 Long term (current) use of anticoagulants; Z20.822 Contact with and (suspected) exposure to COVID-19; Z91.040 Latex allergy status; Z95.0 Presence of cardiac pacemaker; W01.198A Fall on same level from slipping, tripping and stumbling with subsequent striking against other object, initial encounter; Y93.E1 Activity, personal bathing and showering

== ENCOUNTER → 2022-03-12 | Outpatient (CLI) | payer MEDICARE, BC | LOC: MC.RAD 02-12 11:00 | DX: Z12.31 Encounter for screening mammogram for malignant neoplasm of breast (principal) ==

== ENCOUNTER 2022-08-19 14:36 | Outpatient (RCR) | payer MEDICARE, BC ==
[~2022-08-19] VITALS: Ht 162.6 cm; Wt 65.8 kg
[~2022-08-19 14:36] MED LIST changes: +EVENITY (2210 MG/2.3 SQ
[2022-08-19 14:56] VITALS: BP 113/67; PULSE 61; TEMP 99.1
[2022-08-19] MEDS ORDERED: ASPIRIN E.C. 8181 MG PO (15:36)
--- NOTE | 2022-08-19 15:46 | NUR ---
Pt and daughter exit dept, by in wheelchair. She tolerated injection without issue.
== END 2022-08-19 15:47 | disposition home or self-care (01) ==
LOC: EUO 14:36
DX: M81.0 Age-related osteoporosis without current pathological fracture (principal)
CPT/HCPCS: J3111

== ENCOUNTER 2022-09-16 13:34 | Outpatient (CLI) | payer MEDICARE, BC ==
[~2022-09-16] VITALS: Ht 162.6 cm; Wt 65.0 kg
[2022-09-16] MEDS ORDERED: SYNTHROID0.125 MG/T PO (14:07)
[2022-09-16 14:08] VITALS: BP 105/52; PULSE 64; TEMP 96.3
--- NOTE | 2022-09-16 14:30 | NUR ---
PT ACCOMPANIED BY DAUGHTER. MEDS UPDATED. EVENITY INJS GIVEN SQ IN UPPER ARMS
== END 2022-09-16 14:33 | disposition home or self-care (01) ==
LOC: EUO 13:34 → EDSTATUS 14:00 → EUO 14:33
DX: M81.0 Age-related osteoporosis without current pathological fracture (principal)
CPT/HCPCS: J3111

== ENCOUNTER 2022-10-21 13:46 | Outpatient (RCR) | payer MEDICARE, BC ==
[~2022-10-21] VITALS: Ht 162.6 cm; Wt 66.9 kg
[2022-10-21 14:07] VITALS: BP 113/63; PULSE 62; TEMP 98
--- NOTE | 2022-10-21 14:23 | NUR ---
pt tolerated evenity injection well. her vs were wnl and she tolerated po fluids throughout injection. she was given an appointment card with her next appointment and she was free from concerns and complaints at time of discharge. she was assisted to lobby via wheelchair where her daughter was waiting for her.
== END 2022-11-07 | disposition home or self-care (01) ==
LOC: EUO
DX: M81.0 Age-related osteoporosis without current pathological fracture (principal)
CPT/HCPCS: J3111

== ENCOUNTER 2022-11-18 14:37 | Outpatient (CLI) | payer MEDICARE, BC ==
[~2022-11-18] VITALS: Ht 162.6 cm; Wt 66.0 kg
[2022-11-18 15:01] VITALS: BP 151/69; PULSE 66; TEMP 98.4
--- NOTE | 2022-11-18 15:29 | NUR ---
PT ARRIVED BY WHEELCHAIR TO [facility] ACCOMPANIED BY DAUGHTER. PT IS SCHEDULED FOR AN EVENITY INJECTION. MEDS AND HX REVIEWED WITH PT. NO NEW CONCERNS. EVENITY INJECTION GIVEN, PT EXITED THE UNIT BY WHEELCHAIR TO DAUGHTERS CAR.
== END 2022-11-18 15:28 | disposition home or self-care (01) ==
LOC: EUO 14:37
DX: M81.0 Age-related osteoporosis without current pathological fracture (principal)
CPT/HCPCS: J3111

== ENCOUNTER 2023-04-12 14:09 | Inpatient (IN) | payer MEDICARE, BC ==
[~2023-04-12] VITALS: Ht 162.6 cm; Wt 54.1 kg
[~2023-04-12 14:09] MED LIST changes: +ARAVA10 MG; +ARAVA10 MG PO; +BROVANA15 MCG/2 M IH; +CEFTIN 250250 MG/TAB PO; +CORDARONE200 MG/TAB PO; +D3-5050000 IU PO; +FENTANYL 25 MCG TD; +LIDODERM 5% PATC1 EA TP; +LOPRESSOR100 MG PO; +MACROBID 1100 MG/CAP PO; +PERC2.5TAB; +PLAQUENIL 200M200 MG PO; +PULMICORT0.25 MG/2 IH; +RINVOQ ER15 MG PO; +SANCTURA20 MG PO; +ULORIC40 MG PO; +VESICARE 5MG5 MG PO
[2023-04-12 18:19] VITALS: BP 183/82; PULSE 60; TEMP 98.1
--- NOTE | 2023-04-12 19:43 | NUR ---
pt arrived to IPR unit around 1730 today from medical unit. pt alert and oriented. BP found to be elevated, call to hospitalist for orders. Pharmacy called to verify orders. Meds for bp given per emar. Rest of pt vital signs stable pt is on room air and is standby one assist with fww. Head to toe assessment complete. call light within reach. bed alarm set.
--- NOTE | 2023-04-12 19:46 | NUR ---
REPORT RECIEVED FROM BJORN FORBES. PT RESTING IN BED EATING HER DINNER. PT DENIES PAIN. PT PRESENTS CONFUSED BUT ALERT. CALL LIGHT IN PLACE. BED ALARM ON. ALL NEEDS MET AT THIS TIME.
[2023-04-12 21:00] VITALS: BP_SYST 150
--- NOTE | 2023-04-12 21:13 | NUR ---
SHIFT ASSESSMENT COMPLETE, SEE DOCUMENTATION. PT RESTING IN BED. PT DENIES PAIN AND STATES SHE IS TIRED AND WANTS TO SLEEP. PT ALERT BUT CONFUSED. BED ALARM ON. CALL LIGHT IN PLACE. ALL NEEDS MET AT THIS TIME.
[2023-04-12 21:31] VITALS: BP 150/54; PULSE 59
[2023-04-13] VITALS (9 sets, daily range): BP systolic 136–160; BP diastolic 76–96; PULSE 95–108; TEMP 97.6–98
--- NOTE | 2023-04-13 04:11 | NUR ---
PT C/O LEFT HIP PAIN. PRN TYLENOL ADMINISTERED. CALL LIGHT IN PLACE. BED ALARM ON. ALL NEEDS MET AT THIS TIME.
--- NOTE | 2023-04-13 06:58 | NUR ---
Shift report received from night RN. Pt fell OOB last night. Head CT, Left hip XR negative per report. Nighttime confusion also reported. No other events overnight. Pt sleeping supine in bed w/ even & unlabored resps. Call light in reach. Bed alarm is on.
--- NOTE | 2023-04-13 12:00 | NUR ---
Pt completed shower w/ OT. Mepilex dressing to Rt. medial foot removed to reveal thick callous. No drainage. This area is occasionally tender per pt. Mepilex dressing applied for comfort/protection. Pt remains working w/ OT.
--- NOTE | 2023-04-13 14:42 | NUR ---
Pt sitting up in the wheelchair visiting w/ her & daughter. Pt has a pain stimulator to right lower back. Daughter is currently charging the stimulator. Other needs denies. Call light in reach. Chair alarm is on.
--- NOTE | 2023-04-13 14:50 | NUR ---
Has lack of transportation kept you from medical appts, meetings, work, or from getting things needed for daily living? NO How often do you feel lonely or isolated from those around you? RARELY Over the past 5 days, how much of the time has pain made it hard for you to sleep? OCCASIONALLY Over the past 5 days, how often have you limited your participation in therapy due to pain? RARELY/NOT AT ALL Over the past 5 days, how often have you limited your day-to-day activities because of pain? RARELY/NOT AT ALL Have you had 2 or more falls in the past year or any fall with an injury? YES Did you have major surgery during the 100 days prior to admission? NO
--- NOTE | 2023-04-13 16:40 | NUR ---
restuarant crew worker met with IPR team to discuss patient and her progress. Patient had a fall last night but was doing well prior to the fall. restuarant crew worker met with patient, Zeyad (daughter) and . Patient expressed her best point of contact is Zeyad Tai# [phone]. Patient's primary care physician is Dr. Anali Sahu at [facility] and preferred pharmacy is [facility]. Zeyad expressed patient uses several different foundations to afford medications when needed. Patient has a [facility]- appointing Khanh Jeffers and her as agents for her healthcare decisions. Patient has a wheelchair, walker, breathing treatments, hearing aids and back stimulator for her pain. Patient expressed she discontinued using her breathing treatments but her daughter believes it would be beneficial to be on them agian. Patient was fairly independent with ADLS but expressed she needs help with dressing, putting her shoes on and transfers. Patient lives at [facility] [place] [facility] with her . Patient would like to return back to assisted living at time of discharge.
--- NOTE | 2023-04-13 17:32 | NUR ---
Pt sitting up in her wheelchair eating dinner independently. Pt denies the need for pain medication at this time. Denies having any pain today w/ ambulation or having any worsening lt. hip pain after her fall during the night. Pt denies other needs. Call light in her reach. Chair alarm is on.
--- NOTE | 2023-04-13 20:00 | NUR ---
PT RESTING IN BED. ORIENTED AT THIS TIME. C/O GENERALIZED DISCOMFORT. TYLENOL GIVEN. SEE SHIFT ASSESSMENT- COMPLETED. CALL LIGHT IN REACH. BED ALARM SET ON MIDDLE MORE SENSITIVE SETTING.
[2023-04-14] VITALS (11 sets, daily range): BP systolic 157–202; BP diastolic 44–85; PULSE 59–62; TEMP 97.4–98.2
--- NOTE | 2023-04-14 04:39 | NUR ---
PT C/O LT MEDIAL THIGH PAIN. NO CHANGE IN CMS. BP 202/82 MANUALLY. SEE MAR FOR APRESOLINE 25MG PO GIVEN.
[2023-04-14 05:41] LABS: BASO % 0.4 % (0.0-2.0); GRAN # 6.4 K/mm3 (1.4-6.5); GRAN % 89.3 % (42.2-75.2); LYMPH # 0.3 K/mm3 (1.2-3.4); LYMPH % 3.9 % (20.0-51.0); MEAN CELL VOLUME 99 fl (80.0-100.0); MEAN CORPUSCULAR HGB CONC 33 g/dl (33.0-37.0); MEAN PLATELET VOLUME 10.3 fl (7.4-10.4); MONO # 0.4 K/mm3 (0.1-0.6); MONO % 5.6 % (1.7-9.3); PLATELET COUNT 114 K/mm3 (130-400); RED BLOOD COUNT 2.62 M/mm3 (4.10-5.30); REDCELL DISTRIBUTION WIDTH-CV 18.7 % (11.5-14.5)
[2023-04-14 05:45] LABS: HEMATOCRIT 25.8 % (37.0-47.0); HEMOGLOBIN 8.4 g/dl (12.5-16.0); MEAN CORPUSCULAR HEMOGLOBIN 32 pg (27-31)
[2023-04-14 06:30] LABS: ALBUMIN 3.1 gm/dL (3.4-4.8); BILIRUBIN,TOTAL 0.8 mg/dL (0.2-1.2); CALCIUM 9.2 mg/dL (8.4-10.2); CREATININE, serum 1.8 mg/dL (0.57-1.11); MAGNESIUM 1.6 mg/dL (1.6-2.6); POTASSIUM 4.2 mmol/L (3.5-4.5); TOTAL PROTEIN 5.6 gm/dL (6.2-8.1)
--- NOTE | 2023-04-14 07:01 | NUR ---
Shift report received from night RN. Pt awake & lying supine in bed. Pt w/ sys BP of 202 during machinist 2nd shift - PRN Hydralazine given. Will recheck BP. Pt c/o lt hip/thigh pain this morning. Will administer Tramadol per PRN order. Will discuss w/ hospitalist re: recheck of thigh s/p fall on 04/12. RN GERIATRIC at the bedside to assist w/ a.m. cares.
--- NOTE | 2023-04-14 07:12 | NUR ---
Called hospitalist to discuss pt's level of pain. Hospitalist will come to untit for eval. See EMAR for changes.
--- NOTE | 2023-04-14 08:59 | NUR ---
Pt is off the unit w/ PT.
--- NOTE | 2023-04-14 10:45 | NUR ---
Pt is off the unit for Group Therapy. Pt's daughter, Silvana, updated on pt's pain status. She had no further questions.
--- NOTE | 2023-04-14 11:49 | NUR ---
Pt sitting up in her wheelchair visiting w/ her daughter & . Pt reports no pain at this time. Denies other needs. Call light in reach. Chair alarm is on. Daughter plans to bring rx for Rinvoq tomorrow.
--- NOTE | 2023-04-14 12:39 | NUR ---
BP elevated. Pt denies FRANKLIN, chest pain, nausea. Hospitalist notified & HS dose of Losartan & Apresoline given per his order. Will continue to monitor BP.
--- NOTE | 2023-04-14 15:28 | NUR ---
manager workers compensation met with patient, patient's and patient's daughter to schedule family meeting. Family meeting is scheduled for Tuesday04/20/23 at 10:30 AM. Patient's expressed their main goal was for patient to be able to walk with her walker prior to returning home.
--- NOTE | 2023-04-14 15:30 | NUR ---
Pt resting supine in bed & requesting to get up out of bed. SBA provided as pt stood from bed to FWW & ambulated to the bathroom then the recliner. Son is at the bedside. Pt denies any needs at this time. Call light in reach. Chair alarm is on.
--- NOTE | 2023-04-14 21:00 | NUR ---
PT RESITNG IN BED. WAKES EASILY. VERY [place]. PT DENIES PAIN. NO NEED AT THIS TIME. SBP 166. SEE MAR FOR APRESOLINE GIVEN. CALL LIGHT IN REACH. BED ALARM SET.
[2023-04-15] VITALS (10 sets, daily range): BP systolic 134–183; BP diastolic 55–73; PULSE 59–66; TEMP 97.8–98.8
--- NOTE | 2023-04-15 02:08 | NUR ---
PT TRYING TO GET OUT OF BED BY HERSELF. ASSISTED TO BR W/ WALKER. VOIDED.BRIEFS DRY. BACK TO BED. CALL LIGHT IN REACH. BED ALARM SET.
--- NOTE | 2023-04-15 03:30 | NUR ---
PT HAS BEEN IMPULSIVE A FEW TIMES TONIGHT. REMINDED TO USE CALL LIGHT. SHE VERBALIZED UNDERSTANDING. PT C/O RT MEDIAL BOTTOM OF FOOT- TOOK OLD MEPILEX OFF. HAS SOME OLD BLOODY DRG- SMALL AMT. WOUND STAGE 2 1 1/2 X 1 CM. SHALLOW. AREA CLEANED WITH NS. NEW MEPILEX PLACED. SEE MAR FOR ULTRAM GIVEN. SMALL ICE PACK PER REQUEST. CALL LIGHT IN REACH. BED ALARMSET.
--- NOTE | 2023-04-15 11:53 | NUR ---
PT ALERT AND ORIENTED. VITAL SIGNS STABLE. NO C/O PAIN AT THIS TIME. HEAD TO TOE ASSESSMENT COMPLETE. MEDICATED PER EMAR. FALL PRECAUTIONS IN PLACE.
--- NOTE | 2023-04-15 12:47 | NUR ---
Admission QIM scores were reviewed by the team. Code of 2 chosen for toileting hygiene was determined by team discussion to be the most usual performance for this patient during the discharge assessment period. Code of 3 chosen for toilet transfers was determined by team discussion to be the most usual performance for this patient during the discharge assessment period. Code of 3 chosen for lying to sitting side of bed was determined by team discussion to be the most usual performance before interventions for this patient during the assessment period.--Shayla Palafox, PD
--- NOTE | 2023-04-15 16:20 | NUR ---
SW Student faxed clinical updates to [facility].
--- NOTE | 2023-04-15 16:32 | NUR ---
supervisor cemetery workers was notified by nursing that family may be concerned about patient returning to assisted living. supervisor cemetery workers will follow up with family regarding concerns to ensure proper placement upon discharge.
--- NOTE | 2023-04-15 19:43 | NUR ---
RECEIVED CHANGE OF SHIFT REPORT FROM DAY SHIFT RN.
--- NOTE | 2023-04-15 21:56 | NUR ---
REQUESTED PAIN MED FOR LUCAS LEG PAIN, SEE SEP.
[2023-04-16] VITALS (9 sets, daily range): BP systolic 114–194; BP diastolic 67–82; PULSE 59–107; TEMP 97–98.3
--- NOTE | 2023-04-16 07:32 | NUR ---
RECIEVED REPORT FROM NEUROPSYCHOLOGY DIRECTOR NURSE
--- NOTE | 2023-04-16 07:37 | NUR ---
PT ALERT AND ORIENTED. VITAL SIGNS STABLE. HEAD TO TOE ASSESSMENT COMPLETE. MEDICATED PER EMAR. PT ABLE TO WALK TO BATHROOM WITH 1 PERSON ASSIST WITH FWW. NO C/O PAIN AT THIS TIME. UP IN THE RECLINER FOR BREAKFAST. FALL PRECAUTIONS IN PLACE.
[2023-04-17] VITALS (12 sets, daily range): BP systolic 148–173; BP diastolic 51–68; PULSE 59–69; TEMP 97.8–98.4
--- NOTE | 2023-04-17 03:30 | NUR ---
Shift assessment performed- see documentation. Pt is alert and oriented, though began to show some mild confusion just before bed. She denies pain or discomfort at this time. PM meds administered. No other needs expressed at this time. Fall precautions in place and call light left within reach.
--- NOTE | 2023-04-17 06:51 | NUR ---
RECIEVED REPORT FROM SECRETARY OF POLICE NURSE
--- NOTE | 2023-04-17 11:20 | NUR ---
PT ALERT AND ORIENTED. VITAL SIGNS STABLE. HEAD TO TOE ASSESSMENT COMPLETE. MEDICATED PER EMAR. STANDBY ASSIST WITH FRONT WHEEL WALKER. FALL PRECAUTIONS IN PLACE.
--- NOTE | 2023-04-17 18:47 | NUR ---
RECEIVED CHANGE OF SHIFT REPORT FROM DAY SHIFT RN.
--- NOTE | 2023-04-17 19:10 | NUR ---
PATIENT TO BED AFTER PERFORMING HS CARE PER SELF, DRESSED FOR SLEEP. EXIT ALARM ON, CALL LIGHT IN REACH.
[2023-04-18] VITALS (10 sets, daily range): BP systolic 131–192; BP diastolic 61–78; PULSE 57–61; TEMP 97.8–98.4
[2023-04-18 06:33] LABS: HEMATOCRIT 24.6 % (37.0-47.0)
[2023-04-18 06:35] LABS: ALBUMIN 2.9 gm/dL (3.4-4.8); BILIRUBIN,TOTAL 0.6 mg/dL (0.2-1.2); CREATININE, serum 1.61 mg/dL (0.57-1.11); MAGNESIUM 1.8 mg/dL (1.6-2.6); POTASSIUM 4.1 mmol/L (3.5-4.5); TOTAL PROTEIN 5.1 gm/dL (6.2-8.1)
--- NOTE | 2023-04-18 07:07 | NUR ---
CHANGE OF SHIFT REPORT GIVEN TO DAY SHIFT RNBJORN.
--- NOTE | 2023-04-18 07:17 | NUR ---
RECIEVED REPORT FROM APPLIANCE LINE ASSEMBLER NURSE
--- NOTE | 2023-04-18 09:07 | NUR ---
PT ALERT AMD ORIENTED. VITAL SIGNS STABLE. HEAD TO TOE ASSESSMENT COMPLETE. MEDICATED PER EMAR. PT IS ABLE TO PERFORM MORNING HYGIENE INDEPENDANTLY. FALL PRECAUTIONS IN PLACE. NO C/O PAIN AT THIS TIME.
--- NOTE | 2023-04-18 15:52 | NUR ---
Health Spa Manager met with Carlton at bedside to review progress towards treatment goals and discuss discharge planning. Patient reflects on her goal of "walking better" and states that she is able to walk further. Patient states that she has been working hard while in rehab and would like to go home but understands that she may need more rehab before discharge. SW reviewed scheduled family meeting on 04/20/23 at 1030. Patient presents with no further concerns.
--- NOTE | 2023-04-18 20:00 | NUR ---
Patient resting in chair. Denies any pain at this time. Assissted patient to bathroom and to bed. Assessment complete. Denies any other needs at this time. Call light and personal items in reach. Bed in low position and bed alarm on.
[2023-04-19] VITALS (14 sets, daily range): BP systolic 106–181; BP diastolic 54–85; PULSE 52–103; TEMP 97.9–98.7
--- NOTE | 2023-04-19 07:06 | NUR ---
Shift report received from mold shifter RN. Pt sleeping supine in bed w/ even & unlabored resps. No events reported overnight. Call light in reach. Bed alarm is on.
--- NOTE | 2023-04-19 16:36 | NUR ---
Pt sitting up in the recliner visiting w/ her & daughter. Pain medication was given once this shift & pt has denied pain this afternoon. Pt denies any needs at this time. Call light is in her reach. Chair alarm is on.
--- NOTE | 2023-04-19 21:00 | NUR ---
Patient sleeping quietly in bed. Arouses easily to staff entering room. Denies any pain or discomfort. Safety precautions in place, call light within reach. No further needs noted.
[2023-04-20] VITALS (9 sets, daily range): BP systolic 115–137; BP diastolic 41–68; PULSE 59–102; TEMP 97.9–98.2
--- NOTE | 2023-04-20 06:53 | NUR ---
Shift report received from night RN. No events reported overnight. Pt sleeping supine w/ even & unlabored resps. Call light in reach. Bed alarm is on.
--- NOTE | 2023-04-20 07:33 | NUR ---
Pt sitting up on EOB to eat breakfast independently. Pt reporting "some pain" & would like another dose of pain medication prior to PT this morning. Will administer when next dose is due. Pt denies other needs. Call light in reach. Bed alarm is on.
--- NOTE | 2023-04-20 10:50 | NUR ---
Family meeting conducted w/ pt, , son, & daughter (via phone). Also present was the MD, PT, OT, ST, & clinical laboratory medical director/SW. MD discussed pt s medical issues. The team talked about how pt has progressed from a functional standpoint & recommendations she have a gait belt & someone with her when she walks; otherwise, needs to use a w/c. Pt/Family stated they understood. Informed them of a d/c for 04/22/23. However, there were conflicts w/ this so offered , 04/21/23, which they were fine w/. Did tell them the team is recommending home health for continued PT/OT. They were all fine w/ the plan. They had questions which the team answered.
--- NOTE | 2023-04-20 13:59 | NUR ---
Shower completed w/ OT. Pt going off unit w/ OT. Dressing changed to right medial foot callus.
--- NOTE | 2023-04-20 15:17 | NUR ---
Has lack of transportation kept you from medical appts, meetings, work, or from getting things needed for daily living? NO How often do you feel lonely or isolated from those around you? RARELY Over the past 5 days, how much of the time has pain made it hard for you to sleep? OCCASIONALLY Over the past 5 days, how often have you limited your participation in therapy due to pain? RARELY/NOT AT ALL Over the past 5 days, how often have you limited your day-to-day activities because of pain? RARELY/NOT AT ALL
--- NOTE | 2023-04-20 16:02 | NUR ---
Process Design Chemical Engineer met with patient to review and provide copy of team conference notes. Patient is ready for discharge back to [facility] tomorrow. Patient stated she is happy to get back home. SW provided Medicare.gov list of HH agencies for patient to review. Patient has used [facility] in the past but wants to consider the options. SW presented and reviewed IM form with patient who verbalized understanding and provided signature. SW placed form in chart and provided copy to patient. RAFAL contacted patient's daughter, Zeyad to provide update. RAFAL also contacted Moira at [facility] and provided update.
--- NOTE | 2023-04-20 19:00 | NUR ---
RECEIVED CHANGE OF SHIFT REPORT FROM DAY SHIFT RN. PATIENT UP IN W/C, WATCHING T.V. CALL LIGHT IN REACH, PATIENT DENIES ANY NEEDS AT TIME OF REPORT.
[2023-04-21 02:47] VITALS: BP 154/59; PULSE 62; TEMP 97.5
--- NOTE | 2023-04-21 02:51 | NUR ---
PATIENT C/O LUCAS KNEE PAIN, SEE MAR FOR PAIN MED GIVEN. NO OTHER NEEDS REPORTED.
--- NOTE | 2023-04-21 07:06 | NUR ---
CHANGE OF SHIFT REPORT GIVEN TO DAY SHIFT RNBJORN.
[2023-04-21 08:21] VITALS: BP 153/58; BP_SYST 158; PULSE 60; TEMP 98
[2023-04-21 09:00] VITALS: BP_SYST 153
--- NOTE | 2023-04-21 09:06 | NUR ---
RECIEVED REPORT FROM PLAY LEADER NURSE
[2023-04-21] MEDS ORDERED: APRESOLINE 25MG25 MG PO (09:19)
[2023-04-21] MEDS ORDERED: COZAAR 50MG50 MG/TAB PO (09:20)
[2023-04-21] MEDS ORDERED: PAMELOR 10MG10 MG PO (09:21)
--- NOTE | 2023-04-21 11:18 | NUR ---
PT ALERT AND ORIENTED. VITAL SIGNS STABLE. NO C/O PAIN AT THIS TIME. HEAD TO TOE ASSESSMENT COMPLETE. MEDICATED PER EMAR. FALL PRECUATIONS IN PLACE.
[2023-04-21 11:21] VITALS: BP 124/49; PULSE 59; TEMP 98.5
[2023-04-21 13:09] VITALS: BP_SYST 124
--- NOTE | 2023-04-21 13:10 | NUR ---
DISCHARGE INSTRUCTIONS EXPLAINED TO PT AND DAUGHTER. ALL QUESTIONS ANSWERED AND PT VERBALIZES UNDERSTANDING. ESCORTED OUT IN W/C WITH STAFF TO PRIVATE VEHICLE.
--- NOTE | 2023-04-21 15:40 | NUR ---
Senior Commissary Agent contacted patient's daughter, Zeyad to follow up on Home Health choice. SW reviewed Medicare.gov list of agencies and reviewed ratings. Zeyad stated they discussed as a family and do not want [facility]. Zeyad decided on [facility]. RAFAL contacted Jovana at [facility] and faxed referral and orders. RAFAL also faxed orders to [facility].
--- NOTE | 2023-04-21 17:09 | NUR ---
Discharge QIM scores were reviewed by the team. Code of 3 chosen for toileting hygiene was determined by team discussion to be the most usual performance for this patient during the discharge assessment period. Code of 2 chosen for upper body dressing was determined by team discussion to be the most usual performance for this patient during the discharge assessment period. Code of 2 chosen for lower body dressing was determined by team discussion to be the most usual performance for this patient during the discharge assessment period. Code of 4 chosen for sit to lying was determined by team discussion to be the most usual performance for this patient during the discharge assessment period. Code of 4 chosen for lying to sitting was determined by team discussion to be the most usual performance for this patient during the discharge assessment period. Code of 3 for car transfer was determined by team discussion to be the most usual performance for this patient during the discharge assessment period. Code of 4 chosen for walking 10 feet was determined by team discussion to be the most usual performance for this patient during the discharge assessment period. Code of 4 chosen for walking 50 feet w/ 2 turns was determined by team discussion to be the most usual performance before interventions for this patient during the discharge assessment period. Code of 3 chosen for wheel 50 feet w/ 2 turns was determined by team discussion to be the most usual performance before interventions for this patient during the assessment period.--PD Kelly
== END 2023-04-21 12:30 | disposition home health service (06) | DRG 948 ==
PROVIDERS: Internal Medicine; Physician Assistant; ADMIT Internal Medicine
DX: R53.81 Other malaise (principal); E87.1 Hypo-osmolality and hyponatremia; G93.40 Encephalopathy, unspecified; D64.9 Anemia, unspecified; Z74.09 Other reduced mobility; R26.89 Other abnormalities of gait and mobility; W06.XXXD Fall from bed, subsequent encounter; R74.01 Elevation of levels of liver transaminase levels; J44.9 Chronic obstructive pulmonary disease, unspecified; I48.91 Unspecified atrial fibrillation; E87.6 Hypokalemia; E83.42 Hypomagnesemia; I12.9 Hypertensive chronic kidney disease with stage 1 through stage 4 chronic kidney disease, or unspecified chronic kidney disease; N18.9 Chronic kidney disease, unspecified; M19.90 Unspecified osteoarthritis, unspecified site; E03.9 Hypothyroidism, unspecified; Z96.642 Presence of left artificial hip joint; Z79.899 Other long term (current) drug therapy; Z79.891 Long term (current) use of opiate analgesic; Z79.52 Long term (current) use of systemic steroids; M54.50 Low back pain, unspecified
CPT/HCPCS: J7512